=== PATIENT | male | born 1955 | race Caucasian/White ===

== ENCOUNTER 2017-11-17 14:06 | Emergency (ER) | payer MEDICARE, MEDICAID, SELFPAY ==
[2017-11-17 14:13] VITALS: BP 108/72; PULSE 88; RESP 18; TEMP 36.8; O2SAT 98
--- NOTE | 2017-11-17 14:49 | ED.GENADUL ---
Disposition Clinical Impression: Chronic back pain Disposition: HOME Condition: Fair Instructions: Chronic Back Pain (ED) Additional Instructions: Encourage gentle stretching and frequent ambulation. Continue along course as previously advised with spine surgery. You may try topical patches such as Lidoderm patches to help with your pain. Continue with Tylenol. He may take 1000 mg 4 times daily. Do not exceed 4000 mg daily. Keep upcoming appointment with your primary care. Please contact [facility] once again to see about moving up your injection date. Continue along course for weight loss, he may could discuss this further with your primary care as it will help with your back pain and potentially make a surgical candidate. If you develop sensation changes, fever/chills, increased pain or other new/worsening symptoms please seek care urgently once again. Referrals: Ian Soliz MD [Primary Care Provider] - Medical Decision Making - Medical Decision Making Patient presents today with chief complaint of back pain. Pain is chronic. No acute changes. No saddle paresthesias. No change in bowel or bladder habits. Good strength testing equal bilaterally in lower extremities. No fevers or chills. Patient has diffuse tenderness on exam throughout the entirety of the thoracic and lumbar spine with palpation. No step-off is palpated. I did review notes from [facility]. At this point, patient is to follow through with the recommendations of spine at [facility]. I have asked her care according to help facilitate this. She will contact primary care will see if we are able to move up to the scheduled injection with natural resources specialist. workforce management coordinator was able to make an appointment with primary care physician tomorrow. However, the patient is now reporting that he has an appointment tomorrow morning at [facility] to address cyst to that he has had. workforce management coordinator was able to make another appointment. Patient's allergies are limiting for medication as he has had allergy to codeine historically. [facility] spine center clearly does not want the patient to be on opioids for his chronic back pain. I have therefore ordered a Lidoderm patch. Advise close follow-up with primary care. I advised that he contact spine center at [facility] once again to see about moving up his appointment and get on weight loss. We discussed new/worsening symptoms when to seek care urgently once again. Advise follow-up with primary care as scheduled by day care worker. All his questions and concerns were addressed and he is in agreement with this plan. History of Present Illness - General Chief complaint: Nk/Back Pain Stated complaint: CALEX Time Seen by Provider: 11/17/17 14:43 Source: patient, RN notes reviewed Mode of arrival: EMS Limitations: no limitations - History of Present Illness Initial comments: This is 62-year-old male presenting today with chief complaint of back pain that radiates into the right lower extremity. He reports that he has had this pain for over one year. Is been seen by the spine center department. MRIs have been obtained. Patient has known radicular pain radiating into the right lower extremity. He denies any change in bowel or bladder habits. Denies any sensation to changes. Denies any recent trauma. Patient scheduled to have injection in December with spine center. Willie had also recommended that he follow-up with primary care to discuss alternative pain management methods with possible referral to pain management. However, patient reports that I cannot take it anymore. Reports that he has been on multiple medications with no resolution of symptoms. Has been on steroids historically which did not help with symptomatic management. Patient is anticoagulated on Coumadin. He has been taking 500 mg of Tylenol while at home and reports this is unsuccessful in alleviating his discomfort. States that he contacted primary care physician today who recommended evaluation in the emergency department. - Related Data Aspirin [Adult Low Dose Aspirin EC] 81 mg PO DAILY 08/07/12 Warfarin [Coumadin] 0 - 2 tab PO DAILY #90 tab 02/11/17 Cyclobenzaprine [Flexeril] 10 mg PO Q8H PRN PRN #20 tab 04/16/17 Diaper,Brief,Adult, Disposable [Depend] 1 each MC QID #3 box 05/23/17 Lisinopril 10 mg PO DAILY #90 tab-cap 05/23/17 Acetaminophen 1 - 2 tab PO Q6H PRN #90 tab-cap 07/29/17 Tamsulosin HCl 1 - 2 cap PO HS #60 tab-cap 07/29/17 Diphenoxylate HCl/Atropine [Diphenoxylate-Atrop 2.5-0.025] 1 each PO QID PRN #30 tab-cap 08/07/17 Hydrocortisone [ANUSOL-HC 2.5%] 0 RC after bm #30 g 08/07/17 Metoprolol [Lopressor] 12.5 mg PO BID #90 tab-cap 08/19/17 Bumetanide 0.5 tab PO DAILY #45 tab-cap 09/30/17 Meclizine HCl 1 - 2 tab PO Q6H PRN #360 tab 09/30/17 Allergies Allergy/AdvReac Type Severity Reaction Status Date / Time fluoxetine Allergy unkown Unverified 11/17/17 14:14 Sulfa (Sulfonamide Allergy unknown Unverified 11/17/17 14:14 Antibiotics) codeine AdvReac headaches Unverified 11/17/17 14:14 Review of Systems Constitutional: no symptoms reported. denies: chills, fever Respiratory: no symptoms reported Cardiovascular: denies: chest pain, palpitations Gastrointestinal: denies: abdominal pain, nausea, vomiting Genitourinary: denies: urgency (denies change in urinary or bowel habits) Musculoskeletal: as per HPI Skin: denies: rash, lesions, change in color Neurological: as per HPI, abnormal gait (patient ambulates with assitive device at baseline. ). denies: headache Past Medical History - Past Medical History Medical history: AFIB, CVA/TIA, hypertension hernia, obesity, PE, DVT, chronic back pain, Surgical history: herniorraphy, other (hip replacement) - Social History Alcohol use: none Drug use: none General Exam - General Limitations: no limitations General appearance: alert, in no apparent distress - Head Head exam: Present: atraumatic - Eye Eye exam: Present: normal apperance - Neck Neck exam: Present: normal inspection, full ROM. Absent: tenderness - Respiratory Respiratory exam: Present: normal lung sounds bilaterally - Cardiovascular Cardiovascular Exam: Present: regular rate, normal rhythm, normal heart sounds - Rectal Rectal exam: Present: deferred - Extremities Exam Extremities exam: Present: normal inspection (Strength is equal bilaterally in lower extremities. No saddle paresthesias. No sensory deficit noted. Pain is elicited with forward flexion of the bilateral hips, this causes increased pain in his back. No hip pain), pedal edema (patient has compression hose in place) - Back Exam Back exam: Present: tenderness (Patient has exquisite discomfort with palpation over the entirety of the thoracic and lumbar spine.No step of palpable. No notable deformity. Pain extends laterally across entirety of back. No focal area of discomfort. No palpable spasm ), paraspinal tenderness, vertebral tenderness. Absent: normal inspection, muscle spasm, rash noted - Neurological Exam Neurological exam: Present: alert, abnormal gait (Patient ambulating with walker. This is patient's baseline. He denies any change in this.), reflexes normal. Absent: motor sensory deficit - Psychiatric Psychiatric exam: Present: flat affect - Skin Skin exam: Present: warm, dry, intact, normal color Course Vital Signs - 24 hr 11/17/ 14:13 Temperature 36.8 C Pulse 88 Respiratory 18 Rate Blood Pressure 108/72 Pulse Oximetry 98
--- NOTE | 2017-11-17 14:55 | ED.GENADUL_ITS ---
Disposition Clinical Impression: Chronic back pain Disposition: HOME Condition: Fair Instructions: Chronic Back Pain (ED) Additional Instructions: Encourage gentle stretching and frequent ambulation. Continue along course as previously advised with spine surgery. You may try topical patches such as Lidoderm patches to help with your pain. Continue with Tylenol. He may take 1000 mg 4 times daily. Do not exceed 4000 mg daily. Keep upcoming appointment with your primary care. Please contact [facility] once again to see about moving up your injection date. Continue along course for weight loss, he may could discuss this further with your primary care as it will help with your back pain and potentially make a surgical candidate. If you develop sensation changes, fever/chills, increased pain or other new/worsening symptoms please seek care urgently once again. Referrals: Ian Soliz MD [Primary Care Provider] - Medical Decision Making - Medical Decision Making Patient presents today with chief complaint of back pain. Pain is chronic. No acute changes. No saddle paresthesias. No change in bowel or bladder habits. Good strength testing equal bilaterally in lower extremities. No fevers or chills. Patient has diffuse tenderness on exam throughout the entirety of the thoracic and lumbar spine with palpation. No step-off is palpated. I did review notes from [facility]. At this point, patient is to follow through with the recommendations of spine at [facility]. I have asked her care according to help facilitate this. She will contact primary care will see if we are able to move up to the scheduled injection with media center specialist. assessment coordinator was able to make an appointment with primary care physician tomorrow. However, the patient is now reporting that he has an appointment tomorrow morning at [facility] to address cyst to that he has had. assessment coordinator was able to make another appointment. Patient's allergies are limiting for medication as he has had allergy to codeine historically. [facility] spine center clearly does not want the patient to be on opioids for his chronic back pain. I have therefore ordered a Lidoderm patch. Advise close follow-up with primary care. I advised that he contact spine center at [facility] once again to see about moving up his appointment and get on weight loss. We discussed new/worsening symptoms when to seek care urgently once again. Advise follow-up with primary care as scheduled by home care consultant. All his questions and concerns were addressed and he is in agreement with this plan. History of Present Illness - General Chief complaint: Nk/Back Pain Stated complaint: CALEX Time Seen by Provider: 11/17/17 14:43 Source: patient, RN notes reviewed Mode of arrival: EMS Limitations: no limitations - History of Present Illness Initial comments: This is 62-year-old male presenting today with chief complaint of back pain that radiates into the right lower extremity. He reports that he has had this pain for over one year. Is been seen by the spine center department. MRIs have been obtained. Patient has known radicular pain radiating into the right lower extremity. He denies any change in bowel or bladder habits. Denies any sensation to changes. Denies any recent trauma. Patient scheduled to have injection in December with spine center. Willie had also recommended that he follow-up with primary care to discuss alternative pain management methods with possible referral to pain management. However, patient reports that I cannot take it anymore. Reports that he has been on multiple medications with no resolution of symptoms. Has been on steroids historically which did not help with symptomatic management. Patient is anticoagulated on Coumadin. He has been taking 500 mg of Tylenol while at home and reports this is unsuccessful in alleviating his discomfort. States that he contacted primary care physician today who recommended evaluation in the emergency department. - Related Data Aspirin [Adult Low Dose Aspirin EC] 81 mg PO DAILY 08/07/12 Warfarin [Coumadin] 0 - 2 tab PO DAILY #90 tab 02/11/17 Cyclobenzaprine [Flexeril] 10 mg PO Q8H PRN PRN #20 tab 04/16/17 Diaper,Brief,Adult, Disposable [Depend] 1 each MC QID #3 box 05/23/17 Lisinopril 10 mg PO DAILY #90 tab-cap 05/23/17 Acetaminophen 1 - 2 tab PO Q6H PRN #90 tab-cap 07/29/17 Tamsulosin HCl 1 - 2 cap PO HS #60 tab-cap 07/29/17 Diphenoxylate HCl/Atropine [Diphenoxylate-Atrop 2.5-0.025] 1 each PO QID PRN # 30 tab-cap 08/07/17 Hydrocortisone [ANUSOL-HC 2.5%] 0 RC after bm #30 g 08/07/17 Metoprolol [Lopressor] 12.5 mg PO BID #90 tab-cap 08/19/17 Bumetanide 0.5 tab PO DAILY #45 tab-cap 09/30/17 Meclizine HCl 1 - 2 tab PO Q6H PRN #360 tab 09/30/17 Allergies Allergy/AdvReac Type Severity Reaction Status Date / Time fluoxetine Allergy unkown Unverified 11/17/17 14:14 Sulfa (Sulfonamide Allergy unknown Unverified 11/17/17 14:14 Antibiotics) codeine AdvReac headaches Unverified 11/17/17 14:14 Review of Systems Constitutional: no symptoms reported. denies: chills, fever Respiratory: no symptoms reported Cardiovascular: denies: chest pain, palpitations Gastrointestinal: denies: abdominal pain, nausea, vomiting Genitourinary: denies: urgency (denies change in urinary or bowel habits) Musculoskeletal: as per HPI Skin: denies: rash, lesions, change in color Neurological: as per HPI, abnormal gait (patient ambulates with assitive device at baseline. ). denies: headache Past Medical History - Past Medical History Medical history: AFIB, CVA/TIA, hypertension hernia, obesity, PE, DVT, chronic back pain, Surgical history: herniorraphy, other (hip replacement) - Social History Alcohol use: none Drug use: none General Exam - General Limitations: no limitations General appearance: alert, in no apparent distress - Head Head exam: Present: atraumatic - Eye Eye exam: Present: normal apperance - Neck Neck exam: Present: normal inspection, full ROM. Absent: tenderness - Respiratory Respiratory exam: Present: normal lung sounds bilaterally - Cardiovascular Cardiovascular Exam: Present: regular rate, normal rhythm, normal heart sounds - Rectal Rectal exam: Present: deferred - Extremities Exam Extremities exam: Present: normal inspection (Strength is equal bilaterally in lower extremities. No saddle paresthesias. No sensory deficit noted. Pain is elicited with forward flexion of the bilateral hips, this causes increased pain in his back. No hip pain), pedal edema (patient has compression hose in place) - Back Exam Back exam: Present: tenderness (Patient has exquisite discomfort with palpation over the entirety of the thoracic and lumbar spine.No step of palpable. No notable deformity. Pain extends laterally across entirety of back. No focal area of discomfort. No palpable spasm ), paraspinal tenderness, vertebral tenderness. Absent: normal inspection, muscle spasm, rash noted - Neurological Exam Neurological exam: Present: alert, abnormal gait (Patient ambulating with walker. This is patient's baseline. He denies any change in this.), reflexes normal. Absent: motor sensory deficit - Psychiatric Psychiatric exam: Present: flat affect - Skin Skin exam: Present: warm, dry, intact, normal color Course Vital Signs - 24 hr 11/17/ 14:13 Temperature 36.8 C Pulse 88 Respiratory 18 Rate Blood Pressure 108/72 Pulse Oximetry 98
--- NOTE | 2017-11-17 15:12 | PDOC.ERCMPRO ---
Care Management Progress Note 11/17-Lindy RODRIGES requested assistance with a PCP f/u appt. Called CM and spoke with Dennise. Dennise scheduled Jerome for , 11/20 at 2:20. Jerome has an appt at [facility] [place] [place] 11/18/17. Called [facility] to schedule transportation to the provider appt on . Spoke with Maida. Maida scheduled the transport for Jerome.
[2017-11-17 15:20] VITALS: BP 108/72; PULSE 88; RESP 18; TEMP 36.8; O2SAT 98
[2017-11-17] MEDS: Lidocaine 5% Patch 1 PATCH TP (15:27)
== END 2017-11-17 15:25 | disposition home or self-care (01) ==
PROVIDERS: Emergency Provider Student in an Organized Health Care Education/Training Program; PCP Family Medicine
DX: M54.9 Dorsalgia, unspecified (principal); G89.29 Other chronic pain; I10 Essential (primary) hypertension
CPT/HCPCS: 99282; 99283

== ENCOUNTER 2017-12-26 21:33 | Emergency (ER) | payer MEDICARE, MEDICAID, SELFPAY ==
[2017-12-26 21:34] VITALS: BP 130/71; PULSE 82; RESP 20; TEMP 36.9; O2SAT 95
--- NOTE | 2017-12-26 21:49 | W.ED.GENAD ---
Discharge Plan Disposition Patient Disposition: HOME Condition: Stable Discharge Details Chief Complaint: Nk/Back Pain Clinical Impression: Chronic low back pain Reason For Visit: [facility]EX Primary Care Provider: Ian Soliz ED Provider: Benigno Perez Home Meds and New Rx's Prescriptions: Continue warfarin [Coumadin] 5 MG tablet 0 - 2 tab PO DAILY Qty: 90 RF: 4 lisinopril 10 MG tablet 10 mg PO DAILY Qty: 90 RF: 4 diaper,brief,adult,disposable [Depend Underwear For Women S-M] 1 EACH misc 1 ea Miscellaneous QID Qty: 3 RF: 4 tamsulosin 0.4 MG capsule 1 - 2 cap PO HS Qty: 60 RF: 3 hydrocortisone [Anusol-HC] 30 GM cream with perineal applicator RC after bm Qty: 30 RF: 2 diphenoxylate-atropine 1 EACH tablet 1 ea PO QID PRNQty: 30 RF: 0 meclizine 12.5 MG tablet 1 - 2 tab PO Q6H PRN Qty: 360 RF: 3 bumetanide 2 MG tablet 0.5 tab PO DAILY Qty: 45 RF: 4 tramadol 50 MG tablet 50 mg PO Q4H PRN Qty: 30 RF: 0 metoprolol tartrate 25 MG tablet 12.5 mg PO BID Qty: 90 RF: 3 acetaminophen 500 mg capsule 1,000 mg PO Q6H PRN (Reason: pain) Qty: 180 RF: 4 lorazepam 1 mg tablet 1 mg PO ONCE Qty: 1 RF: 0 aspirin [Adult Low Dose Aspirin] 81 MG tablet,delayed release (DR/EC) 81 mg PO DAILY RF: 0 cyclobenzaprine 10 MG tablet 10 mg PO Q8H PRN PRNQty: 20 RF: 0 Discharge Instructions Instructions: Chronic Back Pain (ED) Discharge Data Discharge Physician: Benigno Perez Medical Decision Making 62 yo male who has had over a year of lower back pain and sees the pain clinic and spine clinic and has had MRI's in the past few months showing no central spinal cord abnormalities, who comes in with lower back pain. He states he is waiting for naltrexone that is being mailed to him by the spine clinic but hasn't had it yet took tylenol tonight without relief. He denies difficulty urinating, has no saddle anesthesisa on exam, intact distal sensation and normal reflexes. Denies fevers or ivdu. He was able to walk using a walker at his baseline from the ems stretcher to our stretcher. I suspect the patient is suffering from his continued chronicback pain, there is no findings to suggest sea, cauda equina, or other emergent processes to warrant MRI emergently. No abdominal pain and normal distal pulses so doubt entities such as dissection. will provide muscle relaxers and advised f/u with his pcp and chronic pain clinics Differential Diagnosis sciatica, disc herniation, lumbar strain HPI General Mode of arrival: EMS. Date/Time Provider Initiated Documentation: 12/26/17 21:38. Limitations to Documentation: no limitations. Information obtained by: patient. History of Present Illness 62 year old M presents to the emergency department with the chief complaint of back pain, described as moderate, with intensity rated at 5. and is localized to the back. Patient reports no radiation. Patient started experiencing this year(s) (1) and it has been constant. No relieving factors improve symptom(s), No exacerbating factors reported . Patient notes no other symptoms.. Patient did receive the following treatments prior to arrival, none Related Data Home Medications Medication Instructions Recorded Confirmed aspirin [Adult Low Dose Aspirin] 81 mg PO DAILY 08/07/12 12/26/17 diphenoxylate-atropine 1 ea PO QID PRN #30 tab-cap 08/07/17 12/26/17 hydrocortisone [Anusol-HC] 0 RC after bm #30 g 08/07/17 Previous Rx's Medication Instructions Recorded warfarin [Coumadin] 0 - 2 tab PO DAILY #90 tab 02/11/17 cyclobenzaprine 10 mg PO Q8H PRN PRN #20 tab 04/16/17 diaper,brief,adult,disposable #3 box 05/23/17 [Depend Underwear For Women S-M] lisinopril 10 mg PO DAILY #90 tab-cap 05/23/17 tamsulosin 1 - 2 cap PO HS #60 tab-cap 07/29/17 bumetanide 0.5 tab PO DAILY #45 tab-cap 09/30/17 meclizine 1 - 2 tab PO Q6H PRN #360 tab 09/30/17 tramadol 50 mg PO Q4H PRN #30 tab-cap 11/20/17 metoprolol tartrate 12.5 mg PO BID #90 tab-cap 11/24/17 acetaminophen 500 mg capsule 1,000 mg PO Q6H PRN #180 cap 12/12/17 lorazepam 1 mg tablet 1 mg PO ONCE #1 tab 12/24/17 Allergies Allergy/AdvReac Type Severity Reaction Status Date / Time fluoxetine Allergy unkown Unverified 12/26/17 21:42 Sulfa (Sulfonamide Allergy unknown Unverified 12/26/17 21:42 Antibiotics) codeine AdvReac headaches Unverified 12/26/17 21:42 General Stated Complaint: Nk/Back Pain ADAM: 4 Review of Systems Review of Systems All systems reviewed & are unremarkable except as noted in HPI and below Constitutional Denies chills, Denies fever(s) and Denies weakness Eyes Patient Denies loss of vision ENT Denies change in voice Cardiovascular Denies chest pain and Denies dyspnea Respiratory Denies dyspnea Gastrointestinal Denies abdominal pain, Denies nausea and Denies vomiting Genitourinary Denies dysuria Musculoskeletal Denies joint swelling Integumentary/Breasts Denies rash Neurologic Denies loss of vision and Denies weakness Psychiatric Denies depression Endocrine Denies cold intolerance and Denies heat intolerance Allergic/Immunologic Reports urticaria PFSH Family History family history Personal history of malignant neoplasm Social History Smoking/Tobacco Use Status: Former Tobacco Use Surgical History Repair of umbilical hernia (04/22/01) Exam Const General: no acute distress Orientation: alert HENMT Head: normal to inspection Ears: external ears normal General nose exam: external nose normal Mouth: moist mucous membranes Eyes General: appearance normal, both eyes and all related structures Neck Neck: normal visual inspection Resp Effort & Inspection: normal respiratory effort and able to speak in complete sentences Cardio Rate: regular rate Skin General skin exam: no rashes or lesions noted Neuro General: alert and oriented x3 Extrem General: normal to inspection Psych Mental Status: mental status grossly normal Course Vital Signs Temperature 36.9 C 12/26/17 21:34 Pulse 82 12/26/17 21:34 Respiratory Rate 20 12/26/17 21:34 Blood Pressure 130/71 12/26/17 21:34 Pulse Oximetry 95 09/21/18 21:34 Temperature 36.9 C 12/26/17 21:34 Pulse 82 12/26/17 21:34 Respiratory Rate 20 12/26/17 21:34 Blood Pressure 130/71 12/26/17 21:34 Pulse Oximetry 95 12/26/17 21:34
[2017-12-26] MEDS: Ibuprofen 600 MG TAB PO (21:53)
--- NOTE | 2017-12-26 21:54 | ED.GENADUL_ITS ---
Discharge Plan Disposition Patient Disposition: HOME Condition: Stable Discharge Details Chief Complaint: Nk/Back Pain Clinical Impression: Chronic low back pain Reason For Visit: [facility]EX Primary Care Provider: Ian Soliz ED Provider: Benigno Perez Home Meds and New Rx's Prescriptions: Continue warfarin [Coumadin] 5 MG tablet 0 - 2 tab PO DAILY Qty: 90 RF: 4 lisinopril 10 MG tablet 10 mg PO DAILY Qty: 90 RF: 4 diaper,brief,adult,disposable [Depend Underwear For Women S-M] 1 EACH misc 1 ea Miscellaneous QID Qty: 3 RF: 4 tamsulosin 0.4 MG capsule 1 - 2 cap PO HS Qty: 60 RF: 3 hydrocortisone [Anusol-HC] 30 GM cream with perineal applicator RC after bm Qty: 30 RF: 2 diphenoxylate-atropine 1 EACH tablet 1 ea PO QID PRNQty: 30 RF: 0 meclizine 12.5 MG tablet 1 - 2 tab PO Q6H PRN Qty: 360 RF: 3 bumetanide 2 MG tablet 0.5 tab PO DAILY Qty: 45 RF: 4 tramadol 50 MG tablet 50 mg PO Q4H PRN Qty: 30 RF: 0 metoprolol tartrate 25 MG tablet 12.5 mg PO BID Qty: 90 RF: 3 acetaminophen 500 mg capsule 1,000 mg PO Q6H PRN (Reason: pain) Qty: 180 RF: 4 lorazepam 1 mg tablet 1 mg PO ONCE Qty: 1 RF: 0 aspirin [Adult Low Dose Aspirin] 81 MG tablet,delayed release (DR/EC) 81 mg PO DAILY RF: 0 cyclobenzaprine 10 MG tablet 10 mg PO Q8H PRN PRNQty: 20 RF: 0 Discharge Instructions Instructions: Chronic Back Pain (ED) Discharge Data Discharge Physician: Benigno Perez Medical Decision Making 62 yo male who has had over a year of lower back pain and sees the pain clinic and spine clinic and has had MRI's in the past few months showing no central spinal cord abnormalities, who comes in with lower back pain. He states he is waiting for naltrexone that is being mailed to him by the spine clinic but hasn' t had it yet took tylenol tonight without relief. He denies difficulty urinating , has no saddle anesthesisa on exam, intact distal sensation and normal reflexes. Denies fevers or ivdu. He was able to walk using a walker at his baseline from the ems stretcher to our stretcher. I suspect the patient is suffering from his continued chronicback pain, there is no findings to suggest sea, cauda equina, or other emergent processes to warrant MRI emergently. No abdominal pain and normal distal pulses so doubt entities such as dissection. will provide muscle relaxers and advised f/u with his pcp and chronic pain clinics Differential Diagnosis sciatica, disc herniation, lumbar strain HPI General Mode of arrival: EMS . Date/Time Provider Initiated Documentation: 12/26/17 21:38 . Limitations to Documentation: no limitations . Information obtained by: patient . History of Present Illness 62 year old M presents to the emergency department with the chief complaint of back pain, described as moderate, with intensity rated at 5. and is localized to the back. Patient reports no radiation. Patient started experiencing this year(s) (1) and it has been constant. No relieving factors improve symptom(s), No exacerbating factors reported . Patient notes no other symptoms.. Patient did receive the following treatments prior to arrival, none Related Data Home Medications Medication Instructions Recorded Confirmed aspirin [Adult Low Dose Aspirin] 81 mg PO DAILY 08/07/12 12/26/17 diphenoxylate-atropine 1 ea PO QID PRN #30 tab-cap 08/07/17 12/26/17 hydrocortisone [Anusol-HC] 0 RC after bm #30 g 08/07/17 Previous Rx's Medication Instructions Recorded warfarin [Coumadin] 0 - 2 tab PO DAILY #90 tab 02/11/17 cyclobenzaprine 10 mg PO Q8H PRN PRN #20 tab 04/16/17 diaper,brief,adult,disposable #3 box 05/23/17 [Depend Underwear For Women S-M] lisinopril 10 mg PO DAILY #90 tab-cap 05/23/17 tamsulosin 1 - 2 cap PO HS #60 tab-cap 07/29/17 bumetanide 0.5 tab PO DAILY #45 tab-cap 09/30/17 meclizine 1 - 2 tab PO Q6H PRN #360 tab 09/30/17 tramadol 50 mg PO Q4H PRN #30 tab-cap 11/20/17 metoprolol tartrate 12.5 mg PO BID #90 tab-cap 11/24/17 acetaminophen 500 mg capsule 1,000 mg PO Q6H PRN #180 cap 12/12/17 lorazepam 1 mg tablet 1 mg PO ONCE #1 tab 12/24/17 Allergies Allergy/AdvReac Type Severity Reaction Status Date / Time fluoxetine Allergy unkown Unverified 12/26/17 21:42 Sulfa (Sulfonamide Allergy unknown Unverified 12/26/17 21:42 Antibiotics) codeine AdvReac headaches Unverified 12/26/17 21:42 General Stated Complaint: Nk/Back Pain ADAM: 4 Review of Systems Review of Systems All systems reviewed & are unremarkable except as noted in HPI and below Constitutional Denies chills, Denies fever(s) and Denies weakness Eyes Patient Denies loss of vision ENT Denies change in voice Cardiovascular Denies chest pain and Denies dyspnea Respiratory Denies dyspnea Gastrointestinal Denies abdominal pain, Denies nausea and Denies vomiting Genitourinary Denies dysuria Musculoskeletal Denies joint swelling Integumentary/Breasts Denies rash Neurologic Denies loss of vision and Denies weakness Psychiatric Denies depression Endocrine Denies cold intolerance and Denies heat intolerance Allergic/Immunologic Reports urticaria PFSH Family History family history Personal history of malignant neoplasm Social History Smoking/Tobacco Use Status: Former Tobacco Use Surgical History Repair of umbilical hernia (04/22/01) Exam Const General: no acute distress Orientation: alert HENMT Head: normal to inspection Ears: external ears normal General nose exam: external nose normal Mouth: moist mucous membranes Eyes General: appearance normal, both eyes and all related structures Neck Neck: normal visual inspection Resp Effort & Inspection: normal respiratory effort and able to speak in complete sentences Cardio Rate: regular rate Skin General skin exam: no rashes or lesions noted Neuro General: alert and oriented x3 Extrem General: normal to inspection Psych Mental Status: mental status grossly normal Course Vital Signs Temperature 36.9 C 12/26/17 21:34 Pulse 82 12/26/17 21:34 Respiratory Rate 20 12/26/17 21:34 Blood Pressure 130/71 12/26/17 21:34 Pulse Oximetry 95 09/21/18 21:34 Temperature 36.9 C 12/26/17 21:34 Pulse 82 12/26/17 21:34 Respiratory Rate 20 12/26/17 21:34 Blood Pressure 130/71 12/26/17 21:34 Pulse Oximetry 95 12/26/17 21:34
== END 2017-12-26 22:34 | disposition home or self-care (01) ==
PROVIDERS: Emergency Provider Emergency Medicine; PCP Family Medicine
DX: M54.5 Low back pain (principal); G89.29 Other chronic pain; I10 Essential (primary) hypertension
CPT/HCPCS: 99283

== ENCOUNTER 2018-01-01 20:09 | Emergency (ER) | payer MEDICARE, MEDICAID, SELFPAY ==
[2018-01-01 20:09] VITALS: BP 129/80; PULSE 82; RESP 18; TEMP 36.6; O2SAT 97
--- NOTE | 2018-01-01 20:32 | W.ED.GENAD ---
Discharge Plan Disposition Patient Disposition: HOME Condition: Good Discharge Details Chief Complaint: Urinary Clinical Impression: Hematuria, Painless hematuria Primary Care Provider: Ian Soliz ED Provider: Rai Cunningham Home Meds and New Rx's Prescriptions: No Action naltrexone 50 mg tablet 1.5 mg PO DAILY RF: 0 warfarin [Coumadin] 5 MG tablet 0 - 2 tab PO DAILY Qty: 90 RF: 4 lisinopril 10 MG tablet 10 mg PO DAILY Qty: 90 RF: 4 diaper,brief,adult,disposable [Depend Underwear For Women S-M] 1 EACH misc 1 ea Miscellaneous QID Qty: 3 RF: 4 tamsulosin 0.4 MG capsule 1 - 2 cap PO HS Qty: 60 RF: 3 hydrocortisone [Anusol-HC] 30 GM cream with perineal applicator RC after bm Qty: 30 RF: 2 diphenoxylate-atropine 1 EACH tablet 1 ea PO QID PRNQty: 30 RF: 0 meclizine 12.5 MG tablet 1 - 2 tab PO Q6H PRN Qty: 360 RF: 3 bumetanide 2 MG tablet 0.5 tab PO DAILY Qty: 45 RF: 4 tramadol 50 MG tablet 50 mg PO Q4H PRN Qty: 30 RF: 0 metoprolol tartrate 25 MG tablet 12.5 mg PO BID Qty: 90 RF: 3 acetaminophen 500 mg capsule 1,000 mg PO Q6H PRN (Reason: pain) Qty: 180 RF: 4 lorazepam 1 mg tablet 1 mg PO ONCE Qty: 1 RF: 0 aspirin [Adult Low Dose Aspirin] 81 MG tablet,delayed release (DR/EC) 81 mg PO DAILY RF: 0 cyclobenzaprine 10 MG tablet 10 mg PO Q8H PRN PRNQty: 20 RF: 0 Discharge Instructions Instructions: Hematuria (ED) Additional Instructions: Please continue taking her home medications. Please contact your urologist at [facility] as soon as possible for follow-up. If you have worsening of your blood in your urine, any weakness, or fainting please return immediately. If you would like to see the urologist here, please contact us immediately and we will set that up. If you notice any worsening of your symptoms, or any new symptoms such as vomiting, diarrhea, fever, chills, shortness of breath, chest pain, numbness, weakness, or fainting , please return immediately to the emergency department for reevaluation. Please follow up with your primary care provider as soon as possible for reassessment and reevaluation. As always, it was a pleasure participating in your medical care today. Medical Decision Making This is a 62-year-old male who presents today for hematuria. He does take warfarin for history of a DVT, and paroxysmal A. fib. Patient states that roughly 2 hours prior to arrival he was urinating and had a mild amount of blood noted in his urine. He has never had this before. He had no associated flank pain, dysuria, increased urinary frequency, recent trauma, or other changes. He was experiencing painless hematuria. Here in the emergency department he was able to provide a urine sample however it was yellow with no signs of significant hematuria on visualization. Urinalysis does show evidence of increased RBCs with 20-50 RBCs present. No signs of infection. Patient's hemoglobin is stable, electrolytes are normal, renal function is stable. INR is therapeutic. Patient is hemodynamically stable with no evidence of tachycardia, hypotension, or other concerning symptomatology for volume depletion. I feel that he is having painless hematuria that is very mild in nature. It may be secondary to his Coumadin, prostate issues, or potential bladder polyp or ulcer. I feel ulcer is less likely, with no pain. Controlled with no flank pain, abdominal pain, and no history of kidney stones I feel that a urolithiasis is unlikely and inconsistent with his current clinical picture. I discussed with him the importance of close follow-up, and recommended follow-up with Dr. Keane here at [facility], however the patient made it very clear that he wants to follow-up with his urologist at [facility] that he sees for his prostate issues. He has the physicians number and will call him tomorrow morning. I discussed with him red flags for which to return, including worsening of symptoms. I also discussed our current open options for following up with Dr. Keane if he changes his mind. I have extensively reviewed the treatment plan and discharge instructions with the patient. I have addressed all patient concerns at this time. The patient was made aware of what symptoms to monitor for that would warrant a return to the emergency department. Discussed the plan with the patient, they demonstrate verbal understanding and agreement with our assessment and plan at this time. HPI General Date/Time Provider Initiated Documentation: 01/01/18 20:30. HPI Narrative: This is a 62-year-old male with a past medical history of paroxysmal A. fib, right leg DVT, Coumadin use secondary to this, BPH, obesity, and chronic back pain for which he sees a pain specialist. He presents today for evaluation of hematuria. Patient states that today when he was going to the bathroom roughly 1 hour prior to arrival he noticed a notable amount of dark blood in his urine. There was no pain, no dysuria, no flank pain, no pain in his groin or scrotum. It was painless hematuria. He denies ever having hematuria before. He denies any significant elevation in his INR recently. He denies any history of urolithiasis. He has no other complaints at this time. He denies any vomiting, diarrhea, hematochezia, melena, acholic stool, hematemesis. He denies any trauma to his groin or genitalia. He denies any lightheadedness, syncope, or fainting. He denies any other complaints at this time. He denies any recent surgeries, he denies any IV or illicit drug use. He denies any pertinent family history. Related Data Home Medications Medication Instructions Recorded Confirmed aspirin [Adult Low Dose Aspirin] 81 mg PO DAILY 08/07/12 01/01/18 warfarin [Coumadin] 0 - 2 tab PO DAILY #90 tab 02/11/17 01/01/18 cyclobenzaprine 10 mg PO Q8H PRN PRN #20 tab 04/16/17 01/01/18 diaper,brief,adult,disposable #3 box 05/23/17 01/01/18 [Depend Underwear For Women S-M] lisinopril 10 mg PO DAILY #90 tab-cap 05/23/17 01/01/18 tamsulosin 1 - 2 cap PO HS #60 tab-cap 07/29/17 01/01/18 diphenoxylate-atropine 1 ea PO QID PRN #30 tab-cap 08/07/17 01/01/18 hydrocortisone [Anusol-HC] 0 RC after bm #30 g 08/07/17 01/01/18 bumetanide 0.5 tab PO DAILY #45 tab-cap 09/30/17 01/01/18 meclizine 1 - 2 tab PO Q6H PRN #360 tab 09/30/17 01/01/18 tramadol 50 mg PO Q4H PRN #30 tab-cap 11/20/17 01/01/18 metoprolol tartrate 12.5 mg PO BID #90 tab-cap 11/24/17 01/01/18 acetaminophen 500 mg capsule 1,000 mg PO Q6H PRN #180 cap 12/12/17 01/01/18 lorazepam 1 mg tablet 1 mg PO ONCE #1 tab 12/24/17 01/01/18 naltrexone 50 mg tablet 1.5 mg PO DAILY tab 01/01/18 01/01/18 Previous Rx's Medication Instructions Recorded warfarin [Coumadin] 0 - 2 tab PO DAILY #90 tab 02/11/17 cyclobenzaprine 10 mg PO Q8H PRN PRN #20 tab 04/16/17 diaper,brief,adult,disposable #3 box 05/23/17 [Depend Underwear For Women S-M] lisinopril 10 mg PO DAILY #90 tab-cap 05/23/17 tamsulosin 1 - 2 cap PO HS #60 tab-cap 07/29/17 bumetanide 0.5 tab PO DAILY #45 tab-cap 09/30/17 meclizine 1 - 2 tab PO Q6H PRN #360 tab 09/30/17 tramadol 50 mg PO Q4H PRN #30 tab-cap 11/20/17 metoprolol tartrate 12.5 mg PO BID #90 tab-cap 11/24/17 acetaminophen 500 mg capsule 1,000 mg PO Q6H PRN #180 cap 12/12/17 lorazepam 1 mg tablet 1 mg PO ONCE #1 tab 12/24/17 Allergies Allergy/AdvReac Type Severity Reaction Status Date / Time fluoxetine Allergy unkown Unverified 01/01/18 20:14 Sulfa (Sulfonamide Allergy unknown Unverified 01/01/18 20:14 Antibiotics) codeine AdvReac headaches Unverified 01/01/18 20:14 General Stated Complaint: Urinary ADAM: 4 Review of Systems Review of Systems All systems reviewed & are unremarkable except as noted in HPI and below Exam Narrative Exam Narrative: 1.Const: Well-nourished, Well-developed, appearing stated age 2.Eyes: PERRL, no conjunctival injection, and symmetrical lids. 3.ENT: Atraumatic external nose and ears. Moist MM. Neck: Symmetric, trachea midline, No thyromegaly. 4.CVS: +S1/S2, No murmurs or gallops. Peripheral pulses 2+ and equal in all extremities. Brisk capillary refill in all extremities. 5.RESP: Unlabored respiratory effort. Clear to auscultation bilaterally. No wheezes rales or rhonchi 6.GI: Soft, Nontender/Nondistended, No hepatosplenomegaly. No guarding or rebound. No pelvic tenderness. No suprapubic tenderness. Genital exam demonstrated a uncircumcised male, no hematuria, no blood at the urethral meatus no tenderness. 7.MSK: Normocephalic/Atraumatic, Extremities w/o deformity or ttp No cyanosis or clubbing, Normal movement of all extremities 8.Skin: Warm, Dry. No rashes or lesions. 9.Neuro: black oxide coating equipment tender II-XII grossly intact. Sensation grossly intact, no focal neurologic deficits. 10.Psych: (AAO) x3. Appropriate mood and affect Course Vital Signs Temperature 36.6 C 01/01/18 20:09 Pulse 82 01/01/18 20:09 Respiratory Rate 18 01/01/18 20:09 Blood Pressure 129/80 01/01/18 20:09 Pulse Oximetry 97 01/01/18 20:09 Temperature 36.6 C 01/01/18 20:09 Temperature Source Temporal Artery Scan 01/01/18 20:09 Pulse 82 01/01/18 20:09 Respiratory Rate 18 01/01/18 20:09 Respiratory Effort 01/01/18 20:09 Blood Pressure 129/80 01/01/18 20:09 Pulse Oximetry 97 01/01/18 20:09 Oxygen Delivery Method Room Air 01/01/18 20:09 Oxygen Flow Rate 0 01/01/18 20:09 Pain Level 0 01/01/18 20:12
--- NOTE | 2018-01-01 20:38 | ED.GENADUL_ITS ---
Discharge Plan Disposition Patient Disposition: HOME Condition: Good Discharge Details Chief Complaint: Urinary Clinical Impression: Hematuria, Painless hematuria Primary Care Provider: Ian Soliz ED Provider: Rai Cunningham Home Meds and New Rx's Prescriptions: No Action naltrexone 50 mg tablet 1.5 mg PO DAILY RF: 0 warfarin [Coumadin] 5 MG tablet 0 - 2 tab PO DAILY Qty: 90 RF: 4 lisinopril 10 MG tablet 10 mg PO DAILY Qty: 90 RF: 4 diaper,brief,adult,disposable [Depend Underwear For Women S-M] 1 EACH misc 1 ea Miscellaneous QID Qty: 3 RF: 4 tamsulosin 0.4 MG capsule 1 - 2 cap PO HS Qty: 60 RF: 3 hydrocortisone [Anusol-HC] 30 GM cream with perineal applicator RC after bm Qty: 30 RF: 2 diphenoxylate-atropine 1 EACH tablet 1 ea PO QID PRNQty: 30 RF: 0 meclizine 12.5 MG tablet 1 - 2 tab PO Q6H PRN Qty: 360 RF: 3 bumetanide 2 MG tablet 0.5 tab PO DAILY Qty: 45 RF: 4 tramadol 50 MG tablet 50 mg PO Q4H PRN Qty: 30 RF: 0 metoprolol tartrate 25 MG tablet 12.5 mg PO BID Qty: 90 RF: 3 acetaminophen 500 mg capsule 1,000 mg PO Q6H PRN (Reason: pain) Qty: 180 RF: 4 lorazepam 1 mg tablet 1 mg PO ONCE Qty: 1 RF: 0 aspirin [Adult Low Dose Aspirin] 81 MG tablet,delayed release (DR/EC) 81 mg PO DAILY RF: 0 cyclobenzaprine 10 MG tablet 10 mg PO Q8H PRN PRNQty: 20 RF: 0 Discharge Instructions Instructions: Hematuria (ED) Additional Instructions: Please continue taking her home medications. Please contact your urologist at [facility] as soon as possible for follow-up. If you have worsening of your blood in your urine, any weakness, or fainting please return immediately. If you would like to see the urologist here, please contact us immediately and we will set that up. If you notice any worsening of your symptoms, or any new symptoms such as vomiting, diarrhea, fever, chills, shortness of breath, chest pain, numbness, weakness, or fainting , please return immediately to the emergency department for reevaluation. Please follow up with your primary care provider as soon as possible for reassessment and reevaluation. As always, it was a pleasure participating in your medical care today. Medical Decision Making This is a 62-year-old male who presents today for hematuria. He does take warfarin for history of a DVT, and paroxysmal A. fib. Patient states that roughly 2 hours prior to arrival he was urinating and had a mild amount of blood noted in his urine. He has never had this before. He had no associated flank pain, dysuria, increased urinary frequency, recent trauma, or other changes. He was experiencing painless hematuria. Here in the emergency department he was able to provide a urine sample however it was yellow with no signs of significant hematuria on visualization. Urinalysis does show evidence of increased RBCs with 20-50 RBCs present. No signs of infection. Patient's hemoglobin is stable, electrolytes are normal, renal function is stable. INR is therapeutic. Patient is hemodynamically stable with no evidence of tachycardia, hypotension, or other concerning symptomatology for volume depletion. I feel that he is having painless hematuria that is very mild in nature. It may be secondary to his Coumadin, prostate issues, or potential bladder polyp or ulcer. I feel ulcer is less likely, with no pain. Controlled with no flank pain, abdominal pain, and no history of kidney stones I feel that a urolithiasis is unlikely and inconsistent with his current clinical picture. I discussed with him the importance of close follow-up, and recommended follow- up with Dr. Keane here at [facility], however the patient made it very clear that he wants to follow-up with his urologist at [facility] that he sees for his prostate issues. He has the physicians number and will call him tomorrow morning. I discussed with him red flags for which to return, including worsening of symptoms. I also discussed our current open options for following up with Dr. Keane if he changes his mind. I have extensively reviewed the treatment plan and discharge instructions with the patient. I have addressed all patient concerns at this time. The patient was made aware of what symptoms to monitor for that would warrant a return to the emergency department. Discussed the plan with the patient, they demonstrate verbal understanding and agreement with our assessment and plan at this time. HPI General Date/Time Provider Initiated Documentation: 01/01/18 20:30 . HPI Narrative: This is a 62-year-old male with a past medical history of paroxysmal A. fib, right leg DVT, Coumadin use secondary to this, BPH, obesity, and chronic back pain for which he sees a pain specialist. He presents today for evaluation of hematuria. Patient states that today when he was going to the bathroom roughly 1 hour prior to arrival he noticed a notable amount of dark blood in his urine. There was no pain, no dysuria, no flank pain , no pain in his groin or scrotum. It was painless hematuria. He denies ever having hematuria before. He denies any significant elevation in his INR recently. He denies any history of urolithiasis. He has no other complaints at this time. He denies any vomiting, diarrhea, hematochezia, melena, acholic stool, hematemesis. He denies any trauma to his groin or genitalia. He denies any lightheadedness, syncope, or fainting. He denies any other complaints at this time. He denies any recent surgeries, he denies any IV or illicit drug use. He denies any pertinent family history. Related Data Home Medications Medication Instructions Recorded Confirmed aspirin [Adult Low Dose Aspirin] 81 mg PO DAILY 08/07/12 01/01/18 warfarin [Coumadin] 0 - 2 tab PO DAILY #90 tab 02/11/17 01/01/18 cyclobenzaprine 10 mg PO Q8H PRN PRN #20 tab 04/16/17 01/01/18 diaper,brief,adult,disposable #3 box 05/23/17 01/01/18 [Depend Underwear For Women S-M] lisinopril 10 mg PO DAILY #90 tab-cap 05/23/17 01/01/18 tamsulosin 1 - 2 cap PO HS #60 tab-cap 07/29/17 01/01/18 diphenoxylate-atropine 1 ea PO QID PRN #30 tab-cap 08/07/17 01/01/18 hydrocortisone [Anusol-HC] 0 RC after bm #30 g 08/07/17 01/01/18 bumetanide 0.5 tab PO DAILY #45 tab-cap 09/30/17 01/01/18 meclizine 1 - 2 tab PO Q6H PRN #360 tab 09/30/17 01/01/18 tramadol 50 mg PO Q4H PRN #30 tab-cap 11/20/17 01/01/18 metoprolol tartrate 12.5 mg PO BID #90 tab-cap 11/24/17 01/01/18 acetaminophen 500 mg capsule 1,000 mg PO Q6H PRN #180 cap 12/12/17 01/01/18 lorazepam 1 mg tablet 1 mg PO ONCE #1 tab 12/24/17 01/01/18 naltrexone 50 mg tablet 1.5 mg PO DAILY tab 01/01/18 01/01/18 Previous Rx's Medication Instructions Recorded warfarin [Coumadin] 0 - 2 tab PO DAILY #90 tab 02/11/17 cyclobenzaprine 10 mg PO Q8H PRN PRN #20 tab 04/16/17 diaper,brief,adult,disposable #3 box 05/23/17 [Depend Underwear For Women S-M] lisinopril 10 mg PO DAILY #90 tab-cap 05/23/17 tamsulosin 1 - 2 cap PO HS #60 tab-cap 07/29/17 bumetanide 0.5 tab PO DAILY #45 tab-cap 09/30/17 meclizine 1 - 2 tab PO Q6H PRN #360 tab 09/30/17 tramadol 50 mg PO Q4H PRN #30 tab-cap 11/20/17 metoprolol tartrate 12.5 mg PO BID #90 tab-cap 11/24/17 acetaminophen 500 mg capsule 1,000 mg PO Q6H PRN #180 cap 12/12/17 lorazepam 1 mg tablet 1 mg PO ONCE #1 tab 12/24/17 Allergies Allergy/AdvReac Type Severity Reaction Status Date / Time fluoxetine Allergy unkown Unverified 01/01/18 20:14 Sulfa (Sulfonamide Allergy unknown Unverified 01/01/18 20:14 Antibiotics) codeine AdvReac headaches Unverified 01/01/18 20:14 General Stated Complaint: Urinary ADAM: 4 Review of Systems Review of Systems All systems reviewed & are unremarkable except as noted in HPI and below Exam Narrative Exam Narrative: 1.Const: Well-nourished, Well-developed, appearing stated age 2.Eyes: PERRL, no conjunctival injection, and symmetrical lids. 3.ENT: Atraumatic external nose and ears. Moist MM. Neck: Symmetric, trachea midline, No thyromegaly. 4.CVS: +S1/S2, No murmurs or gallops. Peripheral pulses 2+ and equal in all extremities. Brisk capillary refill in all extremities. 5.RESP: Unlabored respiratory effort. Clear to auscultation bilaterally. No wheezes rales or rhonchi 6.GI: Soft, Nontender/Nondistended, No hepatosplenomegaly. No guarding or rebound. No pelvic tenderness. No suprapubic tenderness. Genital exam demonstrated a uncircumcised male, no hematuria, no blood at the urethral meatus no tenderness. 7.MSK: Normocephalic/Atraumatic, Extremities w/o deformity or ttp No cyanosis or clubbing, Normal movement of all extremities 8.Skin: Warm, Dry. No rashes or lesions. 9.Neuro: central lab technician II-XII grossly intact. Sensation grossly intact, no focal neurologic deficits. 10.Psych: (AAO) x3. Appropriate mood and affect Course Vital Signs Temperature 36.6 C 01/01/18 20:09 Pulse 82 01/01/18 20:09 Respiratory Rate 18 01/01/18 20:09 Blood Pressure 129/80 01/01/18 20:09 Pulse Oximetry 97 01/01/18 20:09 Temperature 36.6 C 01/01/18 20:09 Temperature Source Temporal Artery Scan 01/01/18 20:09 Pulse 82 01/01/18 20:09 Respiratory Rate 18 01/01/18 20:09 Respiratory Effort 01/01/18 20:09 Blood Pressure 129/80 01/01/18 20:09 Pulse Oximetry 97 01/01/18 20:09 Oxygen Delivery Method Room Air 01/01/18 20:09 Oxygen Flow Rate 0 01/01/18 20:09 Pain Level 0 01/01/18 20:12
[2018-01-01 21:01] LABS: Abs Immature Grans 0.04 k/cumm (0.0-0.09); Absolute Basophil Count 0.04 k/cumm (0.0-0.2); Absolute Eosinophil Count 0.49 k/cumm (0.0-0.7); Absolute Lymphocyte Count 1.93 k/cumm (1.2-3.4); Absolute Monocyte Count 1.06 k/cumm (0.11-0.7); Absolute Neutrophil Count 7.01 k/cumm (1.2-6.7); Basophils % 0.4; Eosinophils % 4.6; HCT 46.7 % (40.0-50.0); HGB 14.9 g/dL (13.5-17.5); Immature Grans % 0.4; Lymphocytes % 18.3; Mean Corp. HGB Concentration 31.9 g/dL (32.0-36.0); Mean Corpuscular Hemoglobin 29.5 pg (27.0-33.0); Mean Corpuscular Volume 92.5 fL (80-95); Neutrophils % 66.3; Platelet Count 222 x1000/uL (130-400); RBC 5.05 m/cumm (4.50-6.00); RBC Distribution Width 15.2 % (11.8-14.1); White Blood Cell Count 10.57 k/cumm (4.4-10.8)
[2018-01-01 21:07] LABS: Bilirubin Negative (Negative); Blood Moderate (Negative); Clarity Clear; Glucose Negative (Negative); Ketones Negative (Negative); Leukocyte Esterase Negative (Negative); Nitrite Negative (Negative); Specific Gravity 1.015 (1.005-1.025); Urobilinogen 0.2 EU/dL (Up TO 0.2)
[2018-01-01 21:14] LABS: ALT 26 U/L (12-78); AST 17 U/L (15-37); Albumin 3.5 g/dL (3.4-5.0); Alkaline Phosphatase 71 U/L (46-116); BUN 20 mg/dL (7-18); Bilirubin, Total 0.4 mg/dL (0.2-1.0); CREATININE 0.91 mg/dL (0.70-1.30); Calcium 8.9 mg/dL (8.5-10.1); Chloride 99 mmol/L (98-107); Glucose 106 mg/dL (70-100); Sodium 134 mmol/L (136-145); Total Protein 7.5 g/dL (6.4-8.2)
[2018-01-01 22:06] LABS: Bacteria Rare HPF (Negative); C & S Indicated? No; Casts Negative LPF (Negative); Crystals Negative HPF (Negative); Epithelial Cells Negative HPF (Negative); Mucus Negative (Negative); RBC 20-50 (0-2); WBC 0-2 HPF (0-5)
[2018-01-01 22:12] LABS: INR 2.3 (1.0-3.5); PTT Activated 34.2 sec (21.0-31.4); Prothrombin Time 21.4 sec (9.3-10.8)
--- NOTE | 2018-01-02 09:39 | PDOC.ERCMPRO ---
Care Management Progress Note 01/02/18- Pt seen for urinary hematuria by Dr. Shantell Cunningham on 01/01/18. F/U referral sent to [facility] (Location per pt's request).
--- NOTE | 2018-01-02 09:43 | CMPROGNOTE_ITS ---
Care Management Progress Note 01/02/18- Pt seen for urinary hematuria by Dr. Shantell Cunningham on 01/01/18. F/U referral sent to [facility] (Location per pt's request).
== END 2018-01-01 22:45 | disposition home or self-care (01) ==
PROVIDERS: Emergency Provider Student in an Organized Health Care Education/Training Program; PCP Family Medicine
DX: R31.9 Hematuria, unspecified (principal); Z79.01 Long term (current) use of anticoagulants; I48.91 Unspecified atrial fibrillation; I10 Essential (primary) hypertension
CPT/HCPCS: 36415; 80053; 99283; 81003; 81015; 85025; 85610; 85730

== ENCOUNTER 2018-01-11 12:18 | Emergency (ER) | payer MEDICARE, MEDICAID, SELFPAY ==
[2018-01-11 12:30] VITALS: BP 111/52; PULSE 78; RESP 16; TEMP 36.7; O2SAT 96
[2018-01-11 12:48] LABS: Bilirubin Negative (Negative); Blood Large (Negative); Clarity Cloudy; Glucose Negative (Negative); Ketones Negative (Negative); Leukocyte Esterase Small (Negative); Nitrite Positive (Negative); Urobilinogen 0.2 EU/dL (Up TO 0.2)
--- NOTE | 2018-01-11 12:55 | ED.GENADUL_ITS ---
Discharge Plan Disposition Patient Disposition: HOME Condition: Stable Discharge Details Chief Complaint: Urinary Clinical Impression: UTI (urinary tract infection) Reason For Visit: ZENA Primary Care Provider: Ian Soliz ED Provider: Jessica Morin Home Meds and New Rx's Prescriptions: New cephalexin [Keflex] 500 mg capsule 500 mg PO BID 5 Days Qty: 10 RF: 0 Continue naltrexone 50 mg tablet 1.5 mg PO DAILY RF: 0 warfarin [Coumadin] 5 MG tablet 0 - 2 tab PO DAILY Qty: 90 RF: 4 lisinopril 10 MG tablet 10 mg PO DAILY Qty: 90 RF: 4 diaper,brief,adult,disposable [Depend Underwear For Women S-M] 1 EACH misc 1 ea Miscellaneous QID Qty: 3 RF: 4 tamsulosin 0.4 MG capsule 1 - 2 cap PO HS Qty: 60 RF: 3 hydrocortisone [Anusol-HC] 30 GM cream with perineal applicator RC after bm Qty: 30 RF: 2 diphenoxylate-atropine 1 EACH tablet 1 ea PO QID PRNQty: 30 RF: 0 meclizine 12.5 MG tablet 1 - 2 tab PO Q6H PRN Qty: 360 RF: 3 bumetanide 2 MG tablet 0.5 tab PO DAILY Qty: 45 RF: 4 tramadol 50 MG tablet 50 mg PO Q4H PRN Qty: 30 RF: 0 metoprolol tartrate 25 MG tablet 12.5 mg PO BID Qty: 90 RF: 3 acetaminophen 500 mg capsule 1,000 mg PO Q6H PRN (Reason: pain) Qty: 180 RF: 4 lorazepam 1 mg tablet 1 mg PO ONCE Qty: 1 RF: 0 aspirin [Adult Low Dose Aspirin] 81 MG tablet,delayed release (DR/EC) 81 mg PO DAILY RF: 0 cyclobenzaprine 10 MG tablet 10 mg PO Q8H PRN PRNQty: 20 RF: 0 Discharge Instructions Instructions: Urinary Tract Infection in Men (ED) Additional Instructions: Take your antibiotics until finished. Call your urologist at [facility] tomorrow to schedule follow-up appointment for reevaluation. If you are unable to get an appointment with urologist, call care management here to help with assistance and appointment with your urologist Dr. Keane. Return immediately to the emergency department any worsening or new concerning symptoms Referrals: Obi Keane MD [ [facility] STAFF PHYSICIAN] - Discharge Data Discharge Physician: Jessica Morin Medical Decision Making 62-year-old male with a history of atrial fibrillation on Coumadin, BPH, PE, chronic back pain on tramadol who presents for dysuria and nausea with urgency since yesterday. He has a history of chronic urinary frequency. He has a history of chronic midline back pain and states his pain is no different than his usual back pain. He does admit to some additional left-sided flank pain for the past 3 days but none at present. Patient was seen here on 01/01 for hematuria and had a urinalysis which showed 20 -50 RBCs but 0-2 WBCs and was discharged home with painless hematuria. He was offered to follow-up with urology here but had preferred to follow-up with [facility] urology. Patient states he has not seen urology yet since last week' s ED visit. Vitals within normal limits. Afebrile. Patient appears nontoxic. Lungs clear to auscultation. Abdomen soft, obese, but nontender. Normal exam. No focal deficits. Uses a walker for ambulation due to chronic hip pain. Differential diagnosis includes UTI, pyelonephritis, kidney stone, interstitial cystitis. Patient states he is not sexually active so doubt STD. Will place an IV, bolus IV fluids, labs, urinalysis and obtain a CT rule out renal stone. 1300 --labs reviewed and no white blood cell count of 14, normal hemoglobin, normal creatinine. Urinalysis notes positive nitrate, greater than 50 WBCs, greater than 50 RBCs, small leukocyte esterase. 1330 --patient unable to lay flat in CT due to his chronic back pain and was sent back. Patient states he usually has trouble with this and [facility] has had to give him pain medication in the past. Patient offered pain medication and to send back to CT but he is declining to go back. His urinalysis is positive for UTI. Discussed with patient that as he has obvious UTI, we have a source for his symptoms and he may not need a CT but a CT would rule out a possible stone versus pyelonephritis, but he is again declining CT at this time. Patient states he has not eaten anything, will give his Zofran, oxycodone, dose of Keflex and food and reassess. 1500 --patient states his pain is improved and he is requesting to go home. Patient is unable to obtain a ride to the pharmacy. Will give dose of Keflex for home tonight. Prescription for Keflex was called into [facility] pharmacy for home delivery. Patient was instructed to call urology this week to schedule a follow-up appointment for reevaluation. He is instructed to return to the ER with any worsening or new concerning symptoms. HPI General Mode of arrival: ambulatory . Date/Time Provider Initiated Documentation: 01/11/18 12:23 . Limitations to Documentation: no limitations . Information obtained by: patient . HPI Narrative: Patient is a 62-year-old male with a history of paroxysmal A. fib on Coumadin, BPH, chronic back pain on tramadol who presents to the ED with a complaint of dysuria and nausea since yesterday. Patient was seen here last week in the ED and discharged with painless hematuria and instructed to follow- up with urology. Patient states his hematuria is now resolved. Patient states he has chronic urinary frequency. He does admit to some urinary urgency. He states he has chronic lower back pain in the midline, but does admit to some left flank pain over the past 3 days. He denies fever, vomiting, recent antibiotics, recent hospital admission or history of kidney stones. Past medical history: Paroxysmal atrial fibrillation, obstructive sleep apnea, osteoarthritis, hypertension, hyperlipidemia, BPH, pulmonary embolism, chronic back pain Surgical history: Hernia surgery, hip replacement Social history: Former tobacco use in his 20s, denies alcohol or drugs Medications: See list -Coumadin Allergies: Sulfa, Prozac, Codeine Related Data Home Medications Medication Instructions Recorded Confirmed aspirin [Adult Low Dose Aspirin] 81 mg PO DAILY 08/07/12 01/11/18 warfarin [Coumadin] 0 - 2 tab PO DAILY #90 tab 02/11/17 01/11/18 cyclobenzaprine 10 mg PO Q8H PRN PRN #20 tab 04/16/17 01/11/18 diaper,brief,adult,disposable #3 box 05/23/17 01/01/18 [Depend Underwear For Women S-M] lisinopril 10 mg PO DAILY #90 tab-cap 05/23/17 01/11/18 tamsulosin 1 - 2 cap PO HS #60 tab-cap 07/29/17 01/11/18 diphenoxylate-atropine 1 ea PO QID PRN #30 tab-cap 08/07/17 01/11/18 hydrocortisone [Anusol-HC] 0 RC after bm #30 g 08/07/17 01/01/18 bumetanide 0.5 tab PO DAILY #45 tab-cap 09/30/17 01/11/18 meclizine 1 - 2 tab PO Q6H PRN #360 tab 09/30/17 01/11/18 tramadol 50 mg PO Q4H PRN #30 tab-cap 11/20/17 01/11/18 metoprolol tartrate 12.5 mg PO BID #90 tab-cap 11/24/17 01/11/18 acetaminophen 500 mg capsule 1,000 mg PO Q6H PRN #180 cap 12/12/17 01/11/18 lorazepam 1 mg tablet 1 mg PO ONCE #1 tab 12/24/17 01/11/18 naltrexone 50 mg tablet 1.5 mg PO DAILY tab 01/01/18 01/11/18 cephalexin [Keflex] 500 mg PO BID 5 Days #10 cap 01/11/18 Previous Rx's Medication Instructions Recorded warfarin [Coumadin] 0 - 2 tab PO DAILY #90 tab 02/11/17 cyclobenzaprine 10 mg PO Q8H PRN PRN #20 tab 04/16/17 diaper,brief,adult,disposable #3 box 05/23/17 [Depend Underwear For Women S-M] lisinopril 10 mg PO DAILY #90 tab-cap 05/23/17 tamsulosin 1 - 2 cap PO HS #60 tab-cap 07/29/17 bumetanide 0.5 tab PO DAILY #45 tab-cap 09/30/17 meclizine 1 - 2 tab PO Q6H PRN #360 tab 09/30/17 tramadol 50 mg PO Q4H PRN #30 tab-cap 11/20/17 metoprolol tartrate 12.5 mg PO BID #90 tab-cap 11/24/17 acetaminophen 500 mg capsule 1,000 mg PO Q6H PRN #180 cap 12/12/17 lorazepam 1 mg tablet 1 mg PO ONCE #1 tab 12/24/17 cephalexin [Keflex] 500 mg PO BID 5 Days #10 cap 01/11/18 Allergies Allergy/AdvReac Type Severity Reaction Status Date / Time fluoxetine Allergy unkown Unverified 01/11/18 12:34 Sulfa (Sulfonamide Allergy unknown Unverified 01/11/18 12:34 Antibiotics) codeine AdvReac headaches Unverified 01/11/18 12:34 General Stated Complaint: Urinary ADAM: 3 Review of Systems Review of Systems All systems reviewed & are unremarkable except as noted in HPI and below Constitutional Denies chills, Denies excessive sweating, Denies fatigue, Denies fever(s), Denies weakness and Denies weight loss Eyes Reports system reviewed and no additional complaints, except as docu and Denies blurry vision ENT Denies vertigo, Denies dizziness, Denies otalgia, Denies nasal congestion, Denies sore throat and Denies throat swelling Cardiovascular Denies chest pain, Denies syncope, Denies rapid heart rate and Denies dyspnea Respiratory Denies dyspnea Gastrointestinal Denies abdominal pain, Denies diarrhea and Denies vomiting Genitourinary Denies hematuria, Reports dysuria, Reports flank pain, Denies penile discharge, Denies scrotal swelling, Denies testicular mass, Denies testicular pain, Reports urinary frequency (chronic) and Reports urinary urgency Musculoskeletal Reports back pain and Denies joint swelling Integumentary/Breasts Denies lesions and Denies rash Neurologic Denies behavioral changes, Denies confusion, Denies vertigo, Denies dizziness, Denies syncope and Denies weakness Psychiatric Denies behavioral changes, Denies confusion and Denies depression Endocrine Denies excessive sweating and Denies fatigue Hematologic/Lymphatic Denies easy bruising and Denies lymphadenopathy Allergic/Immunologic Denies throat swelling PFSH Family History family history Personal history of malignant neoplasm Social History Smoking/Tobacco Use Status: Never alcohol intake: never Surgical History Repair of umbilical hernia (04/22/01) Exam Const General: cooperative and healthy appearing Orientation: alert and awake [facility] Head: normal to inspection Ears: hearing grossly normal bilaterally and external ears normal General nose exam: external nose normal Face and sinus: normal facial exam Eyes General: appearance normal, both eyes and all related structures Eyelids: eyelids normal EOM: EOM intact bilaterally Neck Neck: normal visual inspection Lymphatic: no lymphadenopathy noted Chest Chest: normal inspection of the chest Resp Effort & Inspection: normal respiratory effort and able to speak in complete sentences Auscultation: clear to auscultation bilaterally Cardio Rate: regular rate Rhythm: regular rhythm GI Inspection: normal to inspection and other (Obese abdomen) Palpation: soft, not firm, no guarding, no hepatosplenomegaly, no masses and nontender Auscultation: normal bowel sounds Male General Exam: Yes normal external exam Penis: normal penis Scrotum: scrotum normal Testes: normal Back/Spine/Pelvis Back: no CVA tenderness Skin General skin exam: no rashes or lesions noted Neuro General: alert and awake Cognition: normal cognition Speech: speech normal Gait: antalgic (uses walker) Motor: muscle tone normal throughout Extrem General: full ROM, normal capillary refill, no calf tenderness and edema ( nonpitting b/l lower extremities w/ chronic skin changes) Psych Appearance: grossly normal Mental Status: mental status grossly normal Speech and Movement: speech and movement normal Affect: normal affect Thought Process: normal Course Vital Signs Temperature 98.1 F 01/11/18 12:30 Pulse 78 01/11/18 12:30 Respiratory Rate 16 01/11/18 12:30 Blood Pressure 111/52 L 01/11/18 12:30 Pulse Oximetry 96 01/11/18 12:30 Temperature 98.1 F 01/11/18 12:30 Temperature Source Skin 01/11/18 12:30 Pulse 78 01/11/18 12:30 Respiratory Rate 16 01/11/18 12:30 Respiratory Effort Non-Labored 01/11/18 12:30 Blood Pressure 111/52 L 01/11/18 12:30 Blood Pressure Position Sitting 01/11/18 12:30 Pulse Oximetry 96 01/11/18 12:30 Oxygen Delivery Method Room Air 01/11/18 12:30 Oxygen Flow Rate 0 01/11/18 12:30 Pain Level 10 01/11/18 12:30 Comment 01/11/18 12:30 Lab/Test Results Lab/Test Results: Laboratory Tests Range/Units 01/11/18 12:40 Urine Color (Yellow) Yellow Urine Clarity Cloudy Urine pH (5-8) 6.0 Ur Specific [place] (1.005-1.025) 1.020 Urine Protein (Negative) mg/dL 30 H Urine Ketones (Negative) mg/dL Negative Urine Blood (Negative) Large H Urine Nitrite (Negative) Positive H Urine Bilirubin (Negative) Negative Urine Urobilinogen (Up TO 0.2) EU/dL 0.2 Ur Leukocyte Esterase (Negative) Small H Urine Glucose (Negative) mg/dL Negative
[2018-01-11 12:56] LABS: Bacteria Moderate HPF (Negative); C & S Indicated? Yes; Casts Negative LPF (Negative); Crystals Negative HPF (Negative); Epithelial Cells Negative HPF (Negative); Mucus Negative (Negative); RBC >50 (0-2); WBC >50 HPF (0-5)
[2018-01-11] MEDS: Normal Saline 500 ML IV (13:05)
[2018-01-11 13:06] LABS: Abs Immature Grans 0.06 k/cumm (0.0-0.09); Absolute Basophil Count 0.04 k/cumm (0.0-0.2); Absolute Eosinophil Count 0.35 k/cumm (0.0-0.7); Absolute Lymphocyte Count 1.32 k/cumm (1.2-3.4); Absolute Monocyte Count 1.13 k/cumm (0.11-0.7); Absolute Neutrophil Count 11.27 k/cumm (1.2-6.7); Basophils % 0.3; Eosinophils % 2.5; HCT 44.7 % (40.0-50.0); HGB 14.5 g/dL (13.5-17.5); Immature Grans % 0.4; Lymphocytes % 9.3; Mean Corp. HGB Concentration 32.4 g/dL (32.0-36.0); Mean Corpuscular Hemoglobin 29.8 pg (27.0-33.0); Mean Platelet Volume 9.8 fL (8.0-11.0); Neutrophils % 79.5; Platelet Count 215 x1000/uL (130-400); RBC 4.86 m/cumm (4.50-6.00); RBC Distribution Width 15.3 % (11.8-14.1); White Blood Cell Count 14.18 k/cumm (4.4-10.8)
[2018-01-11 13:15] LABS: INR 2.9 (1.0-3.5); Prothrombin Time 27.5 sec (9.3-10.8)
[2018-01-11 13:17] LABS: ALT 22 U/L (12-78); AST 16 U/L (15-37); Albumin 3.3 g/dL (3.4-5.0); Alkaline Phosphatase 73 U/L (46-116); Anion Gap 7.7 mmol/L (3-11); BUN 21 mg/dL (7-18); Bilirubin, Total 0.7 mg/dL (0.2-1.0); CO2 27.3 mmol/L (21.0-32.0); CREATININE 0.78 mg/dL (0.70-1.30); Calcium 8.6 mg/dL (8.5-10.1); Chloride 100 mmol/L (98-107); Glucose 115 mg/dL (70-100); Potassium 4.2 mmol/L (3.5-5.1); Sodium 135 mmol/L (136-145); Total Protein 7.2 g/dL (6.4-8.2)
[2018-01-11] MEDS: Ondansetron 4 MG/2 ML VIAL IVP (13:43)
[2018-01-11] MEDS: oxyCODONE 5 MG TAB PO (14:00)
[2018-01-11] MEDS: Cephalexin 500 MG CAP PO ×2 (14:00→15:00)
--- NOTE | 2018-01-11 15:05 | NUR.NOTE ---
Nursing Note: Called the Keflex prescription in to [facility]. To be delivered tomorrow Friday. Belia Leon.
[2018-01-11 15:20] VITALS: BP 108/60; PULSE 74; RESP 16; TEMP 36.7; O2SAT 97
== END 2018-01-11 15:13 | disposition home or self-care (01) ==
PROVIDERS: Emergency Provider Physician Assistant; PCP Family Medicine
DX: N39.0 Urinary tract infection, site not specified (principal); B96.4 Proteus (mirabilis) (morganii) as the cause of diseases classified elsewhere; I10 Essential (primary) hypertension
CPT/HCPCS: 36415; 80053; 87077; 96361; 96374; 99284; 81003; 81015; 85025; 85610; 87086; 87186; J2405

== ENCOUNTER 2018-02-19 13:51 | Emergency (ER) | payer MEDICARE, MEDICAID, SELFPAY ==
[2018-02-19 13:53] VITALS: BP 139/71; PULSE 78; RESP 18; TEMP 36.8; O2SAT 99
--- NOTE | 2018-02-19 14:03 | W.ED.GENAD ---
Discharge Plan Disposition Patient Disposition: HOME Condition: Stable Discharge Details Chief Complaint: Urinary Clinical Impression: Hematuria, microscopic Reason For Visit: ZENA Primary Care Provider: Ian Soliz ED Provider: Benigno Perez Home Meds and New Rx's Prescriptions: Continue naltrexone 50 mg tablet 1.5 mg PO DAILY RF: 0 warfarin [Coumadin] 5 MG tablet 0 - 2 tab PO DAILY Qty: 90 RF: 4 lisinopril 10 MG tablet 10 mg PO DAILY Qty: 90 RF: 4 diaper,brief,adult,disposable [Depend Underwear For Women S-M] 1 EACH misc 1 ea Miscellaneous QID Qty: 3 RF: 4 tamsulosin 0.4 MG capsule 1 - 2 cap PO HS Qty: 60 RF: 3 meclizine 12.5 MG tablet 1 - 2 tab PO Q6H PRN Qty: 360 RF: 3 bumetanide 2 MG tablet 0.5 tab PO DAILY Qty: 45 RF: 4 metoprolol tartrate 25 MG tablet 12.5 mg PO BID Qty: 90 RF: 3 acetaminophen 500 mg capsule 1,000 mg PO Q6H PRN (Reason: pain) Qty: 180 RF: 4 oxycodone 5 mg tablet 5 mg PO Q6H MDD 20 mg PRN (Reason: pain) Qty: 30 RF: 0 aspirin [Adult Low Dose Aspirin] 81 MG tablet,delayed release (DR/EC) 81 mg PO DAILY RF: 0 Discharge Instructions Instructions: Hematuria (ED) Additional Instructions: follow up with your urologist if you have fevers or persistent vomit return to the emergency department Medical Decision Making 62 yo male with hx of hematuria for which he is being seen at [facility] [place] [facility] for this. He states he had return of bloody urine today and so called ems to bring him here. He denies fevers, is cold but states he realized when he woke up his heating is broken and hasn't had it fixed yet so called ems when he felt very cold. He has chronic lower back pain that he states is unchanged, no saddle anesthesia on exam and denies urinary retention. No cva tenderness or dysuria to suggest pyelo. Will check UA. Has seen [facility] [place] and they were planning on doing cystoscopy but was postponed due to his back pain and is f/u with them later urine here shows microscopic hematuria without evidence of infection and on visual inspection of urine it is clear with mild yellow tinge, not macroscopic hematuria. No need for bladder irrigation. Strongly advised he needs to f/u with [facility] [place] [facility] for workup as this could be cancer. He states his heat is now working. Will d/c home Differential Diagnosis hematuria, cancer, uti HPI General Mode of arrival: EMS. Date/Time Provider Initiated Documentation: 02/19/18 13:58. Limitations to Documentation: no limitations. Information obtained by: patient. History of Present Illness 62 year old M presents to the emergency department with the chief complaint of blood in urine, described as moderate, Patient started experiencing this day(s) (1) and it has been constant. No relieving factors improve symptom(s), No exacerbating factors reported . Patient notes no other symptoms.. Patient did receive the following treatments prior to arrival, none Related Data Home Medications Medication Instructions Recorded Confirmed aspirin [Adult Low Dose Aspirin] 81 mg PO DAILY 08/07/12 02/03/18 warfarin [Coumadin] 0 - 2 tab PO DAILY #90 tab 02/11/17 02/03/18 diaper,brief,adult,disposable #3 box 05/23/17 02/03/18 [Depend Underwear For Women S-M] lisinopril 10 mg PO DAILY #90 tab-cap 05/23/17 02/03/18 tamsulosin 1 - 2 cap PO HS #60 tab-cap 07/29/17 02/03/18 bumetanide 0.5 tab PO DAILY #45 tab-cap 09/30/17 02/03/18 meclizine 1 - 2 tab PO Q6H PRN #360 tab 09/30/17 02/03/18 metoprolol tartrate 12.5 mg PO BID #90 tab-cap 11/24/17 02/03/18 acetaminophen 500 mg capsule 1,000 mg PO Q6H PRN #180 cap 12/12/17 02/03/18 naltrexone 50 mg tablet 1.5 mg PO DAILY tab 01/01/18 01/11/18 oxycodone 5 mg tablet 5 mg PO Q6H PRN #30 tab MDD 20 mg 02/05/18 Previous Rx's Medication Instructions Recorded warfarin [Coumadin] 0 - 2 tab PO DAILY #90 tab 02/11/17 diaper,brief,adult,disposable #3 box 05/23/17 [Depend Underwear For Women S-M] lisinopril 10 mg PO DAILY #90 tab-cap 05/23/17 tamsulosin 1 - 2 cap PO HS #60 tab-cap 07/29/17 bumetanide 0.5 tab PO DAILY #45 tab-cap 09/30/17 meclizine 1 - 2 tab PO Q6H PRN #360 tab 09/30/17 metoprolol tartrate 12.5 mg PO BID #90 tab-cap 11/24/17 acetaminophen 500 mg capsule 1,000 mg PO Q6H PRN #180 cap 12/12/17 oxycodone 5 mg tablet 5 mg PO Q6H PRN #30 tab MDD 20 mg 02/05/18 Allergies Allergy/AdvReac Type Severity Reaction Status Date / Time fluoxetine Allergy unkown Unverified 01/11/18 12:34 Sulfa (Sulfonamide Allergy unknown Unverified 01/11/18 12:34 Antibiotics) codeine AdvReac headaches Unverified 01/11/18 12:34 General Stated Complaint: Urinary ADAM: 3 Review of Systems Review of Systems All systems reviewed & are unremarkable except as noted in HPI and below Constitutional Denies chills, Denies fever(s) and Denies weakness Eyes Denies loss of vision ENT Denies change in voice Cardiovascular Denies chest pain and Denies dyspnea Respiratory Denies dyspnea Gastrointestinal Denies abdominal pain, Denies nausea and Denies vomiting Genitourinary Denies dysuria Musculoskeletal Denies joint swelling Integumentary/Breasts Denies rash Neurologic Denies loss of vision and Denies weakness Psychiatric Denies depression Endocrine Denies cold intolerance and Denies heat intolerance Allergic/Immunologic Denies urticaria Exam Const General: no acute distress Orientation: alert [facility] Head: normal to inspection Ears: external ears normal General nose exam: external nose normal Mouth: moist mucous membranes Eyes General: appearance normal, both eyes and all related structures Neck Neck: normal visual inspection Resp Effort & Inspection: normal respiratory effort and able to speak in complete sentences Cardio Rate: regular rate Back/Spine/Pelvis Back: no CVA tenderness Skin General skin exam: no rashes or lesions noted Neuro General: alert and oriented x3 Extrem General: normal to inspection Psych Mental Status: mental status grossly normal Course Vital Signs Temperature 36.8 C 02/19/18 13:53 Pulse 78 02/19/18 13:53 Respiratory Rate 18 02/19/18 13:53 Blood Pressure 139/71 02/19/18 13:53 Pulse Oximetry 99 02/19/18 13:53 Temperature 36.8 C 02/19/18 13:53 Temperature Source Temporal Artery Scan 02/19/18 13:53 Pulse 78 02/19/18 13:53 Respiratory Rate 18 02/19/18 13:53 Respiratory Effort 02/19/18 13:56 Blood Pressure 139/71 02/19/18 13:53 Blood Pressure Position Sitting 02/19/18 13:53 Pulse Oximetry 99 02/19/18 13:53 Pain Level 10 02/19/18 13:53
[2018-02-19 14:33] LABS: Bilirubin Negative (Negative); Blood Large (Negative); Clarity Clear; Glucose Negative (Negative); Ketones Negative (Negative); Leukocyte Esterase Negative (Negative); Nitrite Negative (Negative); Urobilinogen 0.2 EU/dL (Up TO 0.2); pH 5.5 (5-8)
[2018-02-19 14:46] LABS: WBC 0-2 HPF (0-5)
[2018-02-19 14:47] LABS: Bacteria Negative HPF (Negative); C & S Indicated? No; Casts Negative LPF (Negative); Crystals Negative HPF (Negative); Epithelial Cells Negative HPF (Negative); Mucus Negative (Negative); RBC 20-50 (0-2)
[2018-02-19 15:34] VITALS: BP 133/74; PULSE 97; RESP 16; TEMP 36.8; O2SAT 97
== END 2018-02-19 15:33 | disposition home or self-care (01) ==
LOC: ER 15:38
PROVIDERS: Emergency Provider Emergency Medicine; PCP Family Medicine
DX: R31.29 Other microscopic hematuria (principal)
CPT/HCPCS: 99282; 81003; 81015

== ENCOUNTER 2018-03-06 06:35 | Emergency (ER) | payer MEDICARE, MEDICAID, SELFPAY ==
[2018-03-06 06:42] VITALS: BP 119/70; PULSE 100; RESP 20; TEMP 36.3; O2SAT 93
--- NOTE | 2018-03-06 06:49 | W.ED.GENAD ---
Discharge Plan Disposition Patient Disposition: HOME Condition: Stable Discharge Details Chief Complaint: Nk/Back Pain Clinical Impression: Chronic low back pain Reason For Visit: ZENA Primary Care Provider: Ian Soliz ED Provider: Benigno Perez Home Meds and New Rx's Prescriptions: No Action naltrexone 50 mg tablet 1.5 mg PO DAILY RF: 0 warfarin [Coumadin] 5 MG tablet 0 - 2 tab PO DAILY Qty: 90 RF: 4 lisinopril 10 MG tablet 10 mg PO DAILY Qty: 90 RF: 4 diaper,brief,adult,disposable [Depend Underwear For Women S-M] 1 EACH misc 1 ea Miscellaneous QID Qty: 3 RF: 4 tamsulosin 0.4 MG capsule 1 - 2 cap PO HS Qty: 60 RF: 3 meclizine 12.5 MG tablet 1 - 2 tab PO Q6H PRN Qty: 360 RF: 3 bumetanide 2 MG tablet 0.5 tab PO DAILY Qty: 45 RF: 4 metoprolol tartrate 25 MG tablet 12.5 mg PO BID Qty: 90 RF: 3 acetaminophen 500 mg capsule 1,000 mg PO Q6H PRN (Reason: pain) Qty: 180 RF: 4 aspirin [Adult Low Dose Aspirin] 81 MG tablet,delayed release (DR/EC) 81 mg PO DAILY RF: 0 Discharge Instructions Instructions: Low Back Strain (ED) Medical Decision Making 62 yo male with hx of afib, chronic lower back pain, who recently had his pain medication d/c'd this week with his pcp, comes in with continued lower back pain. Denies fevers, difficulty urinating, no saddle anesthesia, and has no weakness on exam with 2+ reflexes and intact distal sensation. He slept for the first time in the warming fdc last night and thinks this may have increased his pain. Has right lower back pain, no cva tenderness. No findings on exam to suggest sea, cauda equina and do not feel emergent mri indicated. NO weight loss or night sweats so doubt cancer and do not feel xray or lab work indicated. No pulsatile mass to suggest aaa, do not feel ct/u/s indicated. ADvised tylenol and f/u with his pcp Differential Diagnosis strain, contusion, sprain HPI General Mode of arrival: EMS. Date/Time Provider Initiated Documentation: 03/06/18 06:43. Limitations to Documentation: no limitations. Information obtained by: patient. History of Present Illness 62 year old M presents to the emergency department with the chief complaint of right lower back pain, described as moderate, with intensity rated at 6. Quality is described as aching, and is localized to the back. Patient reports no radiation. Patient started experiencing this year(s) (3) and it has been intermittent. No relieving factors improve symptom(s), No exacerbating factors reported . Patient notes no other symptoms.. Patient did receive the following treatments prior to arrival, other (tylenol) Related Data Home Medications Medication Instructions Recorded Confirmed aspirin [Adult Low Dose Aspirin] 81 mg PO DAILY 08/07/12 02/03/18 warfarin [Coumadin] 0 - 2 tab PO DAILY #90 tab 02/11/17 02/03/18 diaper,brief,adult,disposable #3 box 05/23/17 02/03/18 [Depend Underwear For Women S-M] lisinopril 10 mg PO DAILY #90 tab-cap 05/23/17 02/03/18 tamsulosin 1 - 2 cap PO HS #60 tab-cap 07/29/17 02/03/18 bumetanide 0.5 tab PO DAILY #45 tab-cap 09/30/17 02/03/18 meclizine 1 - 2 tab PO Q6H PRN #360 tab 09/30/17 02/03/18 metoprolol tartrate 12.5 mg PO BID #90 tab-cap 11/24/17 02/03/18 acetaminophen 500 mg capsule 1,000 mg PO Q6H PRN #180 cap 12/12/17 02/03/18 naltrexone 50 mg tablet 1.5 mg PO DAILY tab 01/01/18 01/11/18 Previous Rx's Medication Instructions Recorded warfarin [Coumadin] 0 - 2 tab PO DAILY #90 tab 02/11/17 diaper,brief,adult,disposable #3 box 05/23/17 [Depend Underwear For Women S-M] lisinopril 10 mg PO DAILY #90 tab-cap 05/23/17 tamsulosin 1 - 2 cap PO HS #60 tab-cap 07/29/17 bumetanide 0.5 tab PO DAILY #45 tab-cap 09/30/17 meclizine 1 - 2 tab PO Q6H PRN #360 tab 09/30/17 metoprolol tartrate 12.5 mg PO BID #90 tab-cap 11/24/17 acetaminophen 500 mg capsule 1,000 mg PO Q6H PRN #180 cap 12/12/17 Allergies Allergy/AdvReac Type Severity Reaction Status Date / Time fluoxetine Allergy unkown Unverified 03/06/18 06:49 Sulfa (Sulfonamide Allergy unknown Unverified 03/06/18 06:49 Antibiotics) codeine AdvReac headaches Unverified 03/06/18 06:49 General Stated Complaint: Nk/Back Pain ADAM: 4 Review of Systems Review of Systems All systems reviewed & are unremarkable except as noted in HPI and below Constitutional Denies chills, Denies fever(s) and Denies weakness Cardiovascular Denies chest pain and Denies dyspnea Respiratory Denies dyspnea Gastrointestinal Denies abdominal pain, Denies nausea and Denies vomiting Genitourinary Denies dysuria Musculoskeletal Denies joint swelling Integumentary/Breasts Denies rash Neurologic Denies weakness [facility] Social History Smoking/Tobacco Use Status: Never alcohol intake: never Exam Const General: no acute distress Orientation: alert HENMT Head: normal to inspection Ears: external ears normal General nose exam: external nose normal Mouth: moist mucous membranes Eyes General: appearance normal, both eyes and all related structures Neck Neck: normal visual inspection Resp Effort & Inspection: normal respiratory effort and able to speak in complete sentences Cardio Rate: regular rate Back/Spine/Pelvis Back: no CVA tenderness Skin General skin exam: no rashes or lesions noted Neuro General: alert and oriented x3 Extrem General: normal to inspection Psych Mental Status: mental status grossly normal Course Vital Signs Temperature 36.3 C L 03/06/18 06:42 Pulse 100 H 03/06/18 06:42 Respiratory Rate 20 03/06/18 06:42 Blood Pressure 119/70 03/06/18 06:42 Pulse Oximetry 93 L 03/06/18 06:42 Temperature 36.3 C L 03/06/18 06:42 Temperature Source Temporal Artery Scan 03/06/18 06:42 Pulse 100 H 03/06/18 06:42 Respiratory Rate 20 03/06/18 06:42 Respiratory Effort 03/06/18 06:42 Blood Pressure 119/70 03/06/18 06:42 Pulse Oximetry 93 L 03/06/18 06:42 Oxygen Delivery Method Room Air 03/06/18 06:42 Oxygen Flow Rate 0 03/06/18 06:42 Pain Level 10 03/06/18 06:42
[2018-03-06] MEDS: Acetaminophen 500 MG TAB 1000 MG PO (06:54)
--- NOTE | 2018-03-06 06:55 | ED.GENADUL_ITS ---
Discharge Plan Disposition Patient Disposition: HOME Condition: Stable Discharge Details Chief Complaint: Nk/Back Pain Clinical Impression: Chronic low back pain Reason For Visit: ZENA Primary Care Provider: Ian Soliz ED Provider: Benigno Perez Home Meds and New Rx's Prescriptions: No Action naltrexone 50 mg tablet 1.5 mg PO DAILY RF: 0 warfarin [Coumadin] 5 MG tablet 0 - 2 tab PO DAILY Qty: 90 RF: 4 lisinopril 10 MG tablet 10 mg PO DAILY Qty: 90 RF: 4 diaper,brief,adult,disposable [Depend Underwear For Women S-M] 1 EACH misc 1 ea Miscellaneous QID Qty: 3 RF: 4 tamsulosin 0.4 MG capsule 1 - 2 cap PO HS Qty: 60 RF: 3 meclizine 12.5 MG tablet 1 - 2 tab PO Q6H PRN Qty: 360 RF: 3 bumetanide 2 MG tablet 0.5 tab PO DAILY Qty: 45 RF: 4 metoprolol tartrate 25 MG tablet 12.5 mg PO BID Qty: 90 RF: 3 acetaminophen 500 mg capsule 1,000 mg PO Q6H PRN (Reason: pain) Qty: 180 RF: 4 aspirin [Adult Low Dose Aspirin] 81 MG tablet,delayed release (DR/EC) 81 mg PO DAILY RF: 0 Discharge Instructions Instructions: Low Back Strain (ED) Medical Decision Making 62 yo male with hx of afib, chronic lower back pain, who recently had his pain medication d/c'd this week with his pcp, comes in with continued lower back pain. Denies fevers, difficulty urinating, no saddle anesthesia, and has no weakness on exam with 2+ reflexes and intact distal sensation. He slept for the first time in the warming snf last night and thinks this may have increased his pain. Has right lower back pain, no cva tenderness. No findings on exam to suggest sea, cauda equina and do not feel emergent mri indicated. NO weight loss or night sweats so doubt cancer and do not feel xray or lab work indicated. No pulsatile mass to suggest aaa, do not feel ct/u/s indicated. ADvised tylenol and f/u with his pcp Differential Diagnosis strain, contusion, sprain HPI General Mode of arrival: EMS . Date/Time Provider Initiated Documentation: 03/06/18 06:43 . Limitations to Documentation: no limitations . Information obtained by: patient . History of Present Illness 62 year old M presents to the emergency department with the chief complaint of right lower back pain, described as moderate, with intensity rated at 6. Quality is described as aching, and is localized to the back. Patient reports no radiation. Patient started experiencing this year(s) (3) and it has been intermittent. No relieving factors improve symptom(s), No exacerbating factors reported . Patient notes no other symptoms.. Patient did receive the following treatments prior to arrival, other (tylenol) Related Data Home Medications Medication Instructions Recorded Confirmed aspirin [Adult Low Dose Aspirin] 81 mg PO DAILY 08/07/12 02/03/18 warfarin [Coumadin] 0 - 2 tab PO DAILY #90 tab 02/11/17 02/03/18 diaper,brief,adult,disposable #3 box 05/23/17 02/03/18 [Depend Underwear For Women S-M] lisinopril 10 mg PO DAILY #90 tab-cap 05/23/17 02/03/18 tamsulosin 1 - 2 cap PO HS #60 tab-cap 07/29/17 02/03/18 bumetanide 0.5 tab PO DAILY #45 tab-cap 09/30/17 02/03/18 meclizine 1 - 2 tab PO Q6H PRN #360 tab 09/30/17 02/03/18 metoprolol tartrate 12.5 mg PO BID #90 tab-cap 11/24/17 02/03/18 acetaminophen 500 mg capsule 1,000 mg PO Q6H PRN #180 cap 12/12/17 02/03/18 naltrexone 50 mg tablet 1.5 mg PO DAILY tab 01/01/18 01/11/18 Previous Rx's Medication Instructions Recorded warfarin [Coumadin] 0 - 2 tab PO DAILY #90 tab 02/11/17 diaper,brief,adult,disposable #3 box 05/23/17 [Depend Underwear For Women S-M] lisinopril 10 mg PO DAILY #90 tab-cap 05/23/17 tamsulosin 1 - 2 cap PO HS #60 tab-cap 07/29/17 bumetanide 0.5 tab PO DAILY #45 tab-cap 09/30/17 meclizine 1 - 2 tab PO Q6H PRN #360 tab 09/30/17 metoprolol tartrate 12.5 mg PO BID #90 tab-cap 11/24/17 acetaminophen 500 mg capsule 1,000 mg PO Q6H PRN #180 cap 12/12/17 Allergies Allergy/AdvReac Type Severity Reaction Status Date / Time fluoxetine Allergy unkown Unverified 03/06/18 06:49 Sulfa (Sulfonamide Allergy unknown Unverified 03/06/18 06:49 Antibiotics) codeine AdvReac headaches Unverified 03/06/18 06:49 General Stated Complaint: Nk/Back Pain ADAM: 4 Review of Systems Review of Systems All systems reviewed & are unremarkable except as noted in HPI and below Constitutional Denies chills, Denies fever(s) and Denies weakness Cardiovascular Denies chest pain and Denies dyspnea Respiratory Denies dyspnea Gastrointestinal Denies abdominal pain, Denies nausea and Denies vomiting Genitourinary Denies dysuria Musculoskeletal Denies joint swelling Integumentary/Breasts Denies rash Neurologic Denies weakness [facility] Social History Smoking/Tobacco Use Status: Never alcohol intake: never Exam Const General: no acute distress Orientation: alert HENMT Head: normal to inspection Ears: external ears normal General nose exam: external nose normal Mouth: moist mucous membranes Eyes General: appearance normal, both eyes and all related structures Neck Neck: normal visual inspection Resp Effort & Inspection: normal respiratory effort and able to speak in complete sentences Cardio Rate: regular rate Back/Spine/Pelvis Back: no CVA tenderness Skin General skin exam: no rashes or lesions noted Neuro General: alert and oriented x3 Extrem General: normal to inspection Psych Mental Status: mental status grossly normal Course Vital Signs Temperature 36.3 C L 03/06/18 06:42 Pulse 100 H 03/06/18 06:42 Respiratory Rate 20 03/06/18 06:42 Blood Pressure 119/70 03/06/18 06:42 Pulse Oximetry 93 L 03/06/18 06:42 Temperature 36.3 C L 03/06/18 06:42 Temperature Source Temporal Artery Scan 03/06/18 06:42 Pulse 100 H 03/06/18 06:42 Respiratory Rate 20 03/06/18 06:42 Respiratory Effort 03/06/18 06:42 Blood Pressure 119/70 03/06/18 06:42 Pulse Oximetry 93 L 03/06/18 06:42 Oxygen Delivery Method Room Air 03/06/18 06:42 Oxygen Flow Rate 0 03/06/18 06:42 Pain Level 10 03/06/18 06:42
== END 2018-03-06 07:20 | disposition home or self-care (01) ==
LOC: ER 07:29
PROVIDERS: Emergency Provider Emergency Medicine; PCP Family Medicine
DX: M54.5 Low back pain (principal); G89.29 Other chronic pain; I10 Essential (primary) hypertension
CPT/HCPCS: 99283

== ENCOUNTER 2018-04-19 20:08 | Emergency (ER) | payer MEDICARE, MEDICAID, SELFPAY ==
[2018-04-19 20:08] VITALS: BP 130/80; PULSE 82; RESP 18; TEMP 36.1; O2SAT 97
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
[2018-04-19 20:57] LABS: Abs Immature Grans 0.06 k/cumm (0.0-0.09); Absolute Basophil Count 0.06 k/cumm (0.0-0.2); Absolute Eosinophil Count 0.58 k/cumm (0.0-0.7); Absolute Lymphocyte Count 1.95 k/cumm (1.2-3.4); Absolute Monocyte Count 0.97 k/cumm (0.11-0.7); Basophils % 0.5; Eosinophils % 5.2; HCT 45.3 % (40.0-50.0); HGB 14.4 g/dL (13.5-17.5); Immature Grans % 0.5; Lymphocytes % 17.5; Mean Corp. HGB Concentration 31.8 g/dL (32.0-36.0); Mean Corpuscular Hemoglobin 28.9 pg (27.0-33.0); Mean Platelet Volume 10.2 fL (8.0-11.0); Monocytes % 8.7; Neutrophils % 67.6; Platelet Count 219 x1000/uL (130-400); RBC 4.98 m/cumm (4.50-6.00); RBC Distribution Width 14.9 % (11.8-14.1); White Blood Cell Count 11.15 k/cumm (4.4-10.8)
[2018-04-19 20:59] LABS: Absolute Neutrophil Count 7.54 k/cumm (1.2-6.7)
[2018-04-19 21:08] LABS: INR 2.8 (0.9-1.1); Prothrombin Time 28.2 sec (9.3-11.0)
--- NOTE | 2018-04-20 09:34 | PDOC.ERCMPRO ---
Care Management Progress Note 04/20-Dr. Morin requested assistance with a PCP (Martínez) f/u as soon as possible for hemorrhoids. Referral faxed to [facility] this am.
== END 2018-04-19 22:20 | disposition home or self-care (01) ==
PROVIDERS: Emergency Provider Physician Assistant; PCP Family Medicine
DX: K64.9 Unspecified hemorrhoids (principal); I48.91 Unspecified atrial fibrillation; Z79.01 Long term (current) use of anticoagulants; I10 Essential (primary) hypertension
CPT/HCPCS: 36415; 99283; 85025; 85610

== ENCOUNTER 2018-06-25 02:30 | Outpatient (CLI) | payer MEDICARE, MEDICAID, SELFPAY ==
[2018-06-25 12:40] LABS: INR 1.9 (0.9-1.1); Prothrombin Time 19.5 sec (9.3-11.0)
[2018-06-25 12:41] LABS: Anion Gap 13.1 mmol/L (3-11); BUN 26 mg/dL (7-18); CO2 25.9 mmol/L (21.0-32.0); CREATININE 1.03 mg/dL (0.70-1.30); Calcium 9.6 mg/dL (8.5-10.1); Chloride 99 mmol/L (98-107); Glucose 112 mg/dL (70-100); Sodium 138 mmol/L (136-145)
[2018-06-25 12:45] LABS: Abs Immature Grans 0.04 k/cumm (0.0-0.09); Absolute Basophil Count 0.04 k/cumm (0.0-0.2); Absolute Eosinophil Count 0.32 k/cumm (0.0-0.7); Absolute Lymphocyte Count 1.16 k/cumm (1.2-3.4); Absolute Monocyte Count 1.02 k/cumm (0.11-0.7); Absolute Neutrophil Count 7.37 k/cumm (1.2-6.7); Basophils % 0.4; Eosinophils % 3.2; HCT 47.6 % (40.0-50.0); HGB 15.2 g/dL (13.5-17.5); Immature Grans % 0.4; Lymphocytes % 11.7; Mean Corp. HGB Concentration 31.9 g/dL (32.0-36.0); Mean Corpuscular Hemoglobin 28.6 pg (27.0-33.0); Mean Corpuscular Volume 89.5 fL (80-95); Monocytes % 10.3; Platelet Count 224 x1000/uL (130-400); RBC 5.32 m/cumm (4.50-6.00); RBC Distribution Width 14.9 % (11.8-14.1); White Blood Cell Count 9.95 k/cumm (4.4-10.8)
== END 2018-06-25 02:50 ==
PROVIDERS: PCP Family Medicine; Visit Provider Family Medicine
DX: I10 Essential (primary) hypertension (principal); K62.5 Hemorrhage of anus and rectum; I26.99 Other pulmonary embolism without acute cor pulmonale; Z79.01 Long term (current) use of anticoagulants
CPT/HCPCS: 36415; 80048; 85025; 85610

== ENCOUNTER 2018-07-13 07:00 | Outpatient (CLI) | payer MEDICARE, MEDICAID, SELFPAY ==
[2018-07-13 12:50] LABS: INR 1.5 (0.9-1.1); Prothrombin Time 15.3 sec (9.3-11.0)
== END 2018-07-13 07:20 ==
PROVIDERS: PCP Family Medicine; Visit Provider Family Medicine
DX: I26.99 Other pulmonary embolism without acute cor pulmonale (principal); Z79.01 Long term (current) use of anticoagulants
CPT/HCPCS: 36415; 85610

== ENCOUNTER 2018-10-07 01:17 | Outpatient (CLI) | payer MEDICARE, MEDICAID, SELFPAY ==
[2018-10-07 10:40] LABS: INR 2.1 (0.9-1.1); Prothrombin Time 21.1 sec (9.3-11.0)
== END 2018-10-07 01:37 ==
PROVIDERS: PCP Family Medicine; Visit Provider Family Medicine
DX: I26.99 Other pulmonary embolism without acute cor pulmonale (principal); Z79.01 Long term (current) use of anticoagulants
CPT/HCPCS: 36415; 85610

== ENCOUNTER 2018-11-09 01:29 | Outpatient (CLI) | payer MEDICARE, MEDICAID, SELFPAY ==
[2018-11-09 10:08] LABS: INR 3.9 (0.9-1.1); Prothrombin Time 39.6 sec (9.3-11.0)
== END 2018-11-09 01:49 ==
PROVIDERS: PCP Family Medicine; Visit Provider Family Medicine
DX: I26.99 Other pulmonary embolism without acute cor pulmonale (principal); I82.409 Acute embolism and thrombosis of unspecified deep veins of unspecified lower extremity; Z79.01 Long term (current) use of anticoagulants
CPT/HCPCS: 36415; 85610

== ENCOUNTER 2018-11-17 02:17 | Outpatient (CLI) | payer MEDICARE, MEDICAID, SELFPAY ==
[2018-11-17 10:31] LABS: INR 3.5 (0.9-1.1); Prothrombin Time 35.3 sec (9.3-11.0)
== END 2018-11-17 02:37 ==
PROVIDERS: PCP Family Medicine; Visit Provider Family Medicine
DX: I26.99 Other pulmonary embolism without acute cor pulmonale (principal); I82.409 Acute embolism and thrombosis of unspecified deep veins of unspecified lower extremity; Z79.01 Long term (current) use of anticoagulants
CPT/HCPCS: 36415; 85610

== ENCOUNTER 2018-12-03 10:45 | Inpatient (IN) | payer MEDICARE, MEDICAID, SELFPAY ==
[2018-12-03] VITALS (62 sets, daily range): BP systolic 103–123; BP diastolic 57–97; PULSE 77–159; RESP 14–51; TEMP 36.5–37; O2SAT 94–99
--- NOTE | 2018-12-03 10:52 | W.ED.GENAD ---
Discharge Plan Disposition Patient Disposition: [facility] INPATIENT Condition: Stable Discharge Details Chief Complaint: SOB Clinical Impression: Obstructive sleep apnea hypopnea, severe, Stasis edema with ulcer, Acute dyspnea Primary Care Provider: Ian Soliz ED Provider: Carmelo Perez Home Meds and New Rx's Prescriptions: No Action lisinopril 10 mg tablet 10 mg PO DAILY Qty: 90 RF: 4 tamsulosin 0.4 mg capsule See Rx Instructions PO HS Qty: 180 RF: 3 (DME) Depend Underwear For Women S-M 1 EACH misc 1 ea Miscellaneous QID Qty: 3 RF: 4 warfarin [Coumadin] 5 mg tablet See Rx Instructions PO DAILY Qty: 90 RF: 4 acetaminophen 500 mg capsule 1,000 mg PO Q6H PRN (Reason: pain) Qty: 180 RF: 4 meclizine 12.5 mg tablet See Rx Instructions PO Q6H PRN Qty: 90 RF: 3 bumetanide 2 mg tablet 1 mg PO DAILY Qty: 45 RF: 4 metoprolol tartrate 25 mg tablet 12.5 mg PO BID Qty: 90 RF: 3 aspirin [Adult Low Dose Aspirin] 81 MG tablet,delayed release (DR/EC) 81 mg PO DAILY RF: 0 Medical Decision Making Labs unremarkable, as his chest x-ray. CTA obtained due to patient's history of DVTs and pulmonary emboli as well as his atrial fibrillation and presentation of dyspnea with tachypnea in ED. Given patient's chronic back pain as well as his obesity and sleep apnea, it was very difficult to get him to lie flat for CT. It did require dosing with fentanyl as well as Ativan, which was performed with pulse oximetry as well as respiratory therapy and BiPAP was applied for additional support. He has remained with pulse oximetry greater than 96% throughout his entire ED course. He did have some atelectasis on his imaging which may be adding to his dyspnea. I feel much of it is attributed to his severe obstructive sleep apnea with hypoxia as he has not been using his CPAP at home since he lost it 1 month ago. He will need CPAP at night and also needs wound care and assistance with daily living as he is unable to even stand and ambulate to the restroom but alone take his medications appropriately. He is currently living independently does not have any family or support system in place. For these reasons I will be contacting hospitalist for admission. He is very happy with this plan as he does not feel he can adequately take care of himself at home. Dr. Lorenz was consulted, he will be in to see patient for admission. Medical Records Medical records reviewed: Yes I reviewed the patient's medical records. Lab Data Lab results reviewed: Yes I reviewed the patient's lab results. ECG Data Attestation: I personally reviewed and interpreted this ECG (s) as follows: (Atrial fibrillation, no tachycardia or acute ST or T wave changes.) JULIETA Cano is a 63-year-old man with history of morbid obesity, AFib anticoagulated, ANNETTA, PE, cognitive impairment, CVA, chronic back pain, lower extremity edema, coronary artery disease, presenting to the emergency department for evaluation of difficulty breathing. While here he also does admit to having chest pain. He was recently hospitalized at [facility], discharged 1 week ago to home. Over the past several days has been developing shortness of breath. On further questioning he states he has been short of breath for the past few weeks. He is unable to give me the details of his visit and hospitalization at [facility] but it sounds like he went there for treatment of his nonhealing ulcers of his lower legs and ended up getting hospitalized for a week. He was discharged home to an apartment where he lives unassisted however he is unable to perform any of his own wound care as he is unable to reach him physically unwrap his legs due to his body habitus and chronic generalized weakness and deconditioning. General Date/Time Provider Initiated Documentation: 12/03/18 10:52. Related Data Home Medications Medication Instructions Recorded Confirmed aspirin [Adult Low Dose Aspirin] 81 mg PO DAILY 08/07/12 12/03/18 Depend Underwear For Women S-M #3 box 05/23/17 12/03/18 warfarin 5 mg tablet See Rx Instructions PO DAILY #90 04/28/18 12/03/18 tab acetaminophen 500 mg capsule 1,000 mg PO Q6H PRN #180 cap 05/25/18 12/03/18 lisinopril 10 mg tablet 10 mg PO DAILY #90 tab-cap 05/26/18 12/03/18 tamsulosin 0.4 mg capsule See Rx Instructions PO HS #180 05/26/18 12/03/18 tab-cap meclizine 12.5 mg tablet See Rx Instructions PO Q6H PRN #90 07/28/18 12/03/18 tab bumetanide 2 mg tablet 1 mg PO DAILY #45 tab-cap 11/11/18 12/03/18 metoprolol tartrate 25 mg tablet 12.5 mg PO BID #90 tab-cap 11/11/18 12/03/18 Previous Rx's Medication Instructions Recorded Depend Underwear For Women S-M #3 box 05/23/17 warfarin 5 mg tablet See Rx Instructions PO DAILY #90 04/28/18 tab acetaminophen 500 mg capsule 1,000 mg PO Q6H PRN #180 cap 05/25/18 lisinopril 10 mg tablet 10 mg PO DAILY #90 tab-cap 05/26/18 tamsulosin 0.4 mg capsule See Rx Instructions PO HS #180 05/26/18 tab-cap meclizine 12.5 mg tablet See Rx Instructions PO Q6H PRN #90 07/28/18 tab bumetanide 2 mg tablet 1 mg PO DAILY #45 tab-cap 11/11/18 metoprolol tartrate 25 mg tablet 12.5 mg PO BID #90 tab-cap 11/11/18 Allergies Allergy/AdvReac Type Severity Reaction Status Date / Time fluoxetine Allergy unkown Verified 12/03/18 11:01 Sulfa (Sulfonamide Allergy unknown Verified 12/03/18 11:01 Antibiotics) codeine AdvReac headaches Verified 12/03/18 11:01 General ADAM: 3 Review of Systems Constitutional Denies chills, Denies fatigue, Denies fever(s) and Denies lethargy Eyes Denies loss of vision ENT Denies nasal congestion and Denies sore throat Respiratory Denies cough Gastrointestinal Denies abdominal pain, Denies nausea and Denies vomiting Musculoskeletal Denies back pain, Denies muscle weakness and Denies numbness Integumentary/Breasts Denies rash Neurologic Denies focal weakness, Denies loss of vision and Denies numbness Endocrine Denies fatigue Hematologic/Lymphatic Denies easy bruising PFSH Social History Smoking/Tobacco Use Status: Never Alcohol Intake: never Drug use: Never What type of physical activity do you participate in: none Do you feel safe at home: Yes Do you feel safe in your relationship?: Yes Exam Narrative Exam Narrative: Tachypneic and unkempt Const General: cooperative HENMT Head: normal to inspection Ears: hearing grossly normal bilaterally Eyes EOM: EOM intact bilaterally Neck Neck: normal visual inspection Resp Auscultation: clear to auscultation bilaterally Other: Tachypneic, able speak in complete sentences. No wheezing rales or rhonchi. Cardio Rate: regular rate Rhythm: regular rhythm Heart Sounds: no murmurs GI Palpation: soft and nontender Skin General skin exam: no rashes or lesions noted Neuro General: alert, awake and oriented x3 Speech: speech normal Gait: normal gait Extrem Other: Bilateral 2+ pitting edema with stasis dermatitis, weeping area right medial lower leg. No erythema or evidence of acute cellulitis. Dressings were in place and were removed for examination.
[2018-12-03 11:21] LABS: BE (Venous) 3.4 mmol/L (-3-3); HCO3 (Venous) 28 mmol/L (22-28); O2 Sat (Venous) 86 % (70-80); TCO2 (Venous) 25 mmol/L (22-29); pCO2 (Venous) 41 mm/Hg (34-47); pH (Venous) 7.44 (7.32-7.43); pO2 (Venous) 49 mm/Hg (28-44)
--- NOTE | 2018-12-03 11:22 | DI.RAD_ITS ---
SYMPTOM/DIAGNOSIS: CHEST PAIN AND DYSPNEA WORSENING OVER PAST 24 HOURS. CHEST X-RAY: Portable AP view. Comparison 11/08/16 There is poor inspiration. Cardiac silhouette appears within normal limits. There is plate atelectasis in the lung bases. No definite focal consolidating infiltrates or effusions seen. No pneumothorax is identified. IMPRESSION: Atelectasis in the lung bases.
[2018-12-03 11:24] LABS: Lactate 2.7 mmol/L (0.6-1.4)
[2018-12-03 11:36] LABS: Abs Immature Grans 0.04 k/cumm (0.0-0.09); Absolute Basophil Count 0.04 k/cumm (0.0-0.2); Absolute Eosinophil Count 0.35 k/cumm (0.0-0.7); Absolute Monocyte Count 0.77 k/cumm (0.11-0.7); Absolute Neutrophil Count 7.41 k/cumm (1.2-6.7); Basophils % 0.4; Eosinophils % 3.5; HCT 41.8 % (40.0-50.0); HGB 13.1 g/dL (13.5-17.5); Immature Grans % 0.4; Lymphocytes % 13.1; Mean Corp. HGB Concentration 31.3 g/dL (32.0-36.0); Mean Corpuscular Hemoglobin 28.1 pg (27.0-33.0); Mean Corpuscular Volume 89.5 fL (80-95); Mean Platelet Volume 9.4 fL (8.0-11.0); Monocytes % 7.8; Neutrophils % 74.8; Platelet Count 390 x1000/uL (130-400); RBC 4.67 m/cumm (4.50-6.00); RBC Distribution Width 15.6 % (11.8-14.1); White Blood Cell Count 9.91 k/cumm (4.4-10.8)
[2018-12-03 11:41] LABS: Bilirubin Negative (Negative); Blood Trace-intact (Negative); Clarity Clear (Clear); Glucose Negative (Negative); Ketones Negative (Negative); Leukocyte Esterase Trace (Negative); Nitrite Negative (Negative); Specific Gravity 1.015 (1.005-1.025); Urobilinogen 0.2 EU/dL (Up TO 0.2)
[2018-12-03 11:45] LABS: ALT 56 U/L (16-63); AST 22 U/L (15-37); Albumin 3.1 g/dL (3.4-5.0); Alkaline Phosphatase 85 U/L (46-116); Anion Gap 12.2 mmol/L (3-11); BUN 19 mg/dL (7-18); Bilirubin, Total 0.4 mg/dL (0.2-1.0); CO2 26.8 mmol/L (21.0-32.0); Chloride 101 mmol/L (98-107); Glucose 136 mg/dL (70-100); Magnesium 1.8 mg/dL (1.8-2.4); NT-proBNP 968 pg/mL; Potassium 3.8 mmol/L (3.5-5.1); Sodium 140 mmol/L (136-145); Total Protein 7.9 g/dL (6.4-8.2)
[2018-12-03 11:52] LABS: Bacteria Few HPF (Negative); C & S Indicated? Yes; Casts Negative LPF (Negative); Crystals Negative HPF (Negative); Epithelial Cells Few HPF (Negative); Mucus Moderate (Negative)
[2018-12-03 11:58] LABS: Troponin I < 0.05 ng/mL (0.00-0.06)
--- NOTE | 2018-12-03 12:23 | DI.CT_ITS ---
SYMPTOM/DIAGNOSIS: DYSPNEA, TACHYPNEA X 1 WEEK, H/O BILATEARAL PE [address] FOR PULMONARY EMBOLISM: CT angiography was performed with multi slice acquisition and multi planar and 3D reconstruction. Comparison is made with July The exam is quite limited by patient motion. The aorta and pulmonary arteries are well opacified with IV contrast. There is no evidence of aortic dissection. No central pulmonary emboli are seen. Branch vessel emboli could not be excluded due to motion. No pleural or pericardial effusions or infiltrates are seen. There is no evidence of pneumothorax. No thoracic compression fractures are present. IMPRESSION: Limited exam due to patient motion. There are no central pulmonary emboli. Branch vessel emboli could not be excluded.
[2018-12-03 12:54] LABS: INR 2.2 (0.9-1.1); Prothrombin Time 21.7 sec (9.3-11.0)
[2018-12-03] MEDS: fentaNYL 100 MCG/2 ML VIAL 50 MCG IVP ×2 (13:15→14:15)
[2018-12-03] MEDS: LORazepam 2 MG/ML VIAL 1 MG IVP (14:26)
[2018-12-03] MEDS: fentaNYL 100 MCG/2 ML VIAL IVP (16:10)
[2018-12-03] MEDS: Omnipaque 350 MG/ML 100 ML BTL IJ (16:23)
[2018-12-03] MEDS: Omnipaque 350 MG/ML 50 ML BTL IJ (16:24)
--- NOTE | 2018-12-03 16:43 | DI.VRAD_ITS ---
EXAM: CT Angiography Chest With Contrast EXAM DATE/TIME: 12/03/2018 12:25 PM CLINICAL HISTORY: 63 years old, male; Dyspnea and shortness of breath and tachypnea; Patient HX: Tachypnea x 1 week, HX of blood clots. ; Additional info: PT unable to lay completely flat for exam or follow breathing instructions. Study limited. TECHNIQUE: Imaging protocol: Computed tomographic angiography of the chest with intravenous contrast.There is adequate opacification of the pulmonary arteries. The main pulmonary artery measures 330 Hounsfield units. 3D rendering: MIP reconstructed images were created and reviewed. Radiation optimization: All CT scans at this facility use at least one of these dose optimization techniques: automated exposure control; mA and/or kV adjustment per patient size (includes targeted exams where dose is matched to clinical indication); or iterative reconstruction. Contrast material: OMNIPAQUE 350; Contrast volume: 125 ml; Contrast route: IV; COMPARISON: CR XR PORTABLE CHEST AP 12/03/2018 11:19 AM FINDINGS: Limitations: The examination is degraded by significant motion artifact. Pulmonary arteries: There are no intraluminal filling defects in the pulmonary trunk or main pulmonary arteries. Lobar and segmental pulmonary arteries cannot be adequately assessed due to significant motion artifact. Aorta: Unremarkable. No aortic aneurysm. Lungs: There are no focal air space opacities. Pleural space: Unremarkable. No pneumothorax. No pleural effusion. Heart: Unremarkable. No cardiomegaly. No pericardial effusion. Mediastinum: The trachea and main bronchi are patent. Lymph nodes: Unremarkable. No enlarged lymph nodes. Bones/joints: No definite acute osseous abnormality. Soft tissues: Unremarkable. IMPRESSION: 1. No intraluminal filling defects are identified within the main pulmonary arteries however the lobar and segmental branch arteries cannot be adequately assessed. If a pulmonary embolism remains of clinical concern, a follow-up CTA or an alternative imaging modality such as a VQ scan, pulmonary angiogram or lower extremity duplex US is suggested for further assessment. 2. There are no focal air space opacities. Remainder of non-emergent findings as described above. Dictated and Authenticated by: Josefa Berrios MD. Ordering:JESSICA Rhodes MD
[2018-12-03 18:35] LABS: D-Dimer 838 ng/mlFEU (<500)
[2018-12-03 18:36] LABS: Troponin I < 0.05 ng/mL (0.00-0.06)
--- NOTE | 2018-12-03 20:56 | HPE_ITS ---
Date of service: 12/03/18 Time of Service: 20:56 Assessment and Plan (1) Dyspnea: Current visit: Yes Status: Acute In light of his hx of PE and DVT and signs of acute RLE DVT and indeterminate CTA of his chest and little evidence to support either ACS or acute CHF exacerbation, I suspect he has had another PE given his relatively low therapeutic to subtherapeutic INR. For tonight, I am going to start him on full dose lovenox 1 mg/kg SC Q 12hr and adjust his warfarin dosing. I do not feel that there is any value into doing a V/Q scan as he can not tolerate lying on his back (I could not even get him to recline in the chair during a POCUS exam). I will scan his legs in the a.m. w/ US Qualifiers: Dyspnea type: shortness of breath Qualified Code(s): R06.02 - Shortness of breath; R06.00 - Dyspnea, unspecified; R06.01 - Orthopnea (2) DVT (deep venous thrombosis): Current visit: Yes Status: Suspected as above Qualifiers: Affected thrombotic vein of extremity: popliteal Chronicity: acute DVT location: lower extremity Laterality: right Qualified Code(s): I82.431 - Acute embolism and thrombosis of right popliteal vein (3) Hypertension: Current visit: No Status: Chronic continue current home meds. I am not sure as to the reasoning for [facility]. I will keep him on this in light of his HTN and his HFpEF. Qualifiers: Hypertension type: essential hypertension Qualified Code(s): I10 - Essential (primary) hypertension (4) Paroxysmal atrial fibrillation: Current visit: No Status: Chronic continue rate control w/ metoprolol and adjust his warfarin for INR of 2.5 to 3 (5) Anticoagulated on warfarin: Current visit: No Status: Chronic adjustment of warfarin to INR of 2.5 to 3 (6) History of pulmonary embolus (PE): Current visit: No Status: Chronic treatment as above (7) Stasis edema with ulcer: Current visit: Yes Status: Chronic I do not believe he has any acute infection, i.e. no fever, no leukocytosis and furthermore he completed 10 days of antibiotics (7d of Ancef and 3d of Keflex). However, I will ask wound care nurse to evaluate and implement recommendations of local wound care/dressings Qualifiers: Laterality: right Qualified Code(s): I87.311 - Chronic venous hypertension (idiopathic) with ulcer of right lower extremity; L97.919 - Non- pressure chronic ulcer of unspecified part of right lower leg with unspecified severity (8) Heart failure with preserved ejection fraction: Current visit: Yes Status: Acute continue bumex 2 mg daily along w/ lisinopril 10 mg daily. Qualifiers: Heart failure chronicity: chronic Qualified Code(s): I50.32 - Chronic diastolic (congestive) heart failure History of Present Illness Chief Complaint: shortness of breath Narrative: 63 yr old male w/ PMH of chronic venous stasis ulcers of his legs, ANNETTA, morbid obesity, HFpEF, DVT's, PE, afib, HTN and chronic back pain w/ radiculopathy who presented to the ER w/ increasing dyspnea at rest as well as w/ exertion. He was hospitalized at [facility] [place] [place]19-11/26/2018 with similar complaints of dyspnea as well as fever and rigors and increasing bilateral leg edema w/ erythema and weeping drainage from his legs. He was diagnosed w/ cellulitis of his RLE and w/ HFpEF. He was ruled out for AR and echo revealed LVEF 60% w/ normal sized LV although images were suboptimal and regional wall motion abnormalities could not be ruled out and RV size and function and PHTN could not be evaluated. He was felt to be fluid overloaded and was given iv diuretics. His cellulitis was treated w/ 7 days of iv Ancef. Upon discharge he was sent home on Bumex 2 mg daily and his lisinopril was discontinued (unclear as to the reason) and he was sent home on 3 more days of Keflex 500 mg QID. He says that he completed all of his antibiotics and he has been taking his Bumex as prescribed. In spite of this he continues to have bilateral leg edema R>L and dyspnea. He has to sleep in his recliner in a sitting up position d/t orthopnea. He has had occasional chest pains but primarily he says that he just can not get enough a ir. While at [facility] [place] it was recommended that he go on oxygen even during the day but he refused home oxygen. It was also recommended that he go to SNF for awhile but he also declined this. A referral to [facility] was made but he reportedly declined this, however, he denies making any declination. He has been chronically on warfarin for both his afib as well as d/t hx of PE and DVT'S dating back to 2013. His INR while at [facility] [place] was variable running between 2.8 on admission to low therapeutic to slightly subtherapeutic at 1.9 to 2.1. He was suppose to have follow up INR done through Dr. Soliz's office Thursday 11/30 however, no [facility] has seen him since discharge. He states that he takes his warfar in 5 mg daily. Workup in the ER included labs, EKG and CXR as well as CTA of chest. Labs included CMP, protime, CBC, UA, troponin, lactate, VBG. CMP was remarkable for slightly elevated AG of 12, BUN 19, glucose 136, lactate 2.1. Troponin was negative x 2 sets. pro-BNP was high at 968 ( which was lower than his level of 1805 on admission to [facility] [place] His INR is 2.2. d-dimer was elevated at 838 which is higher than his age adjusted level of 620. He underwent CXR that showed basilar atelectasis but no infiltrates or CHF. CTA of his chest was problematic in that he could not lie flat for the study and had to be sedated w/ fentanyl and ativan. Eventually the study was completed but was limited by motion artifacts. No intraluminal filling defects were seen at the main pulmmonary arteries however lobar and segmental branches were not adequately assessed. No air space opacities were seen. The patient is admitted for further evaluation of his dyspnea and treatment for probable recurrent PE and DVT as well as treatment of his venous stasis ulcers. Review of Systems Constitutional Denies chills, Reports daytime sleepiness, Reports fatigue, Denies fever(s), Reports snoring, Reports stops breathing during sleep and Reports weight gain Eyes Reports system reviewed and no additional complaints, except as docu ENT Reports system reviewed and no additional complaints, except as docu Cardiovascular Reports chest pain at rest, Denies syncope, Reports pedal edema, Reports edema, Reports leg ulcers, Reports leg edema, Denies palpitations, Reports dyspnea, Reports dyspnea on exertion, Reports orthopnea and Reports paroxysmal nocturnal dyspnea Respiratory Denies change in phlegm color, Denies chest congestion, Reports cough, Denies hemoptysis, Denies excessive phlegm production, Reports dyspnea, Reports dyspnea on exertion and Reports snoring Gastrointestinal Reports system reviewed and no additional complaints, except as [facility] Genitourinary Reports system reviewed and no additional complaints, [facility] Musculoskeletal Reports radiating pain into limb (right leg) Neurologic Denies syncope Endocrine Reports fatigue and Denies palpitations [facility] Medical History (Updated 12/04/18 @ 04:53 by Mau Lorenz) Anal fissure (Resolved) Anticoagulated on warfarin (Chronic) DVT w/ bilateral pulmonary emboli Benign prostatic hypertrophy (Chronic) Bleeding hemorrhoids (Chronic 10/28/17) Constipation (Chronic) Diverticulosis of sigmoid colon (Chronic 02/16/15) Heart failure with preserved ejection fraction (Acute) History of anal fissures (Chronic) History of pulmonary embolus (PE) (Chronic 08/27/13) Hyperlipidemia (Chronic) Hypertension (Chronic) Increased body mass index (Chronic) Low back pain (Chronic) Obstructive sleep apnea hypopnea, severe (Chronic 11/01/14) Osteoarthritis of hip (Chronic 05/07/13) right hip replacement Paroxysmal atrial fibrillation (Chronic 07/16/13) a. Clinically silent AFIB. b. Anticoagulation not indicated. c. Low-dose beta gabriela because of bradycardia at rest. 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) Raised prostate specific antigen (Chronic) Right hip pain (Chronic 09/30/17) Right leg DVT (Resolved 07/27/13) Sensorineural hearing loss of both ears (Chronic) Stasis edema with ulcer (Chronic) Surgical History History of umbilical hernia repair (Resolved) Repair of umbilical hernia (04/22/01) Family History family history Personal history of malignant neoplasm colon/prostate Social History Smoking/Tobacco Use Status: Never Alcohol Intake: never Drug use: Never What type of physical activity do you participate in: none Do you feel safe at home: Yes Do you feel safe in your relationship?: Yes Meds Home Medications Medication Instructions Recorded Confirmed Type aspirin [Adult Low Dose Aspirin] 81 mg PO DAILY 08/07/12 12/03/18 History Depend Underwear For Women S-M #3 box 05/23/17 12/03/18 Rx warfarin 5 mg tablet See Rx Instructions PO DAILY #90 04/28/18 12/03/18 Rx tab acetaminophen 500 mg capsule 1,000 mg PO Q6H PRN #180 cap 05/25/18 12/03/18 Rx lisinopril 10 mg tablet 10 mg PO DAILY #90 tab-cap 05/26/18 12/03/18 Rx tamsulosin 0.4 mg capsule See Rx Instructions PO HS #180 05/26/18 12/03/18 Rx tab-cap meclizine 12.5 mg tablet See Rx Instructions PO Q6H PRN #90 07/28/18 12/03/18 Rx tab bumetanide 2 mg tablet 1 mg PO DAILY #45 tab-cap 11/11/18 12/03/18 Rx metoprolol tartrate 25 mg tablet 12.5 mg PO BID #90 tab-cap 11/11/18 12/03/18 Rx Allergies Allergy/AdvReac Type Severity Reaction Status Date / Time fluoxetine Allergy unkown Verified 12/03/18 11:01 Sulfa (Sulfonamide Allergy unknown Verified 12/03/18 11:01 Antibiotics) codeine AdvReac headaches Verified 12/03/18 11:01 Exam Cardio Jugular venous pressure: other (unable to discern d/t obesity) Palpation: normal PMI Rate: regular rate Rhythm: abnormal rhythm irregularly irregular Heart Sounds: no gallops, no murmurs and no rubs Bruits: no abdominal aortic bruits and no carotid bruits Pulses: posterior tibial pulses present bilaterally diminished and dorsalis pedis pulses present bilaterally 2+ GI Inspection: large pannus and obesity Palpation: soft and nontender Percussion: normal to percussion Auscultation: normal bowel sounds Rectal Exam: deferred General: other (bermudez catheter in place (placed by ER), draining clear yellow urine) Back/Spine/Pelvis Back: no CVA tenderness Cervical Spine: normal cervical lordosis Thoracic/Lumbar Spine: thoracic and lumbar spine normal to inspection Skin Rashes: rashes noted bilateral anterior lower leg color brawny brown and with an erythematous base and other (stasis dermatitis) Wounds: wounds noted (bilateral stasis superficial skin ulcerations over pretibial surfaces) Nails: yellow and thickened Neuro General: alert, awake, oriented x3, moves all extremities and no focal motor deficits Extrem General: calf tenderness on the right and edema Laterality: bilateral (both lower legs R>L) Right lower extremity: lower leg Details: tenderness Location: of the posterior calf Psych Appearance: disheveled Mental Status: mental status grossly normal Speech and Movement: speech and movement normal Mood: congruent mood Affect: normal affect Attitude: cooperative Thought Process: normal Thought Content: normal Insight: fair Judgment: fair Results Imaging Chest x-ray: report reviewed CT scan - chest: report reviewed EKG: image reviewed (afib 105 bpm, low voltage) Labs : 12/03/18 11:14 12/03/18 11:14 Laboratory Results - last 24 hr 12/03/18 12/03/18 12/03/18 11:14 11:14 11:14 WBC 9.91 RBC 4.67 Hgb 13.1 L Hct 41.8 MCV 89.5 MCH 28.1 MCHC 31.3 L RDW 15.6 H Plt Count 390 MPV 9.4 Immature Gran % 0.4 Neutrophils % 74.8 Lymphocytes % 13.1 Monocytes % 7.8 Eosinophils % 3.5 Basophils % 0.4 Absolute Neutrophils 7.41 H Absolute Lymphocytes 1.30 Absolute Monocytes 0.77 H Absolute Eosinophils 0.35 Absolute Basophils 0.04 PT 21.7 H D INR 2.2 H D D-Dimer VBG pH VBG pCO2 VBG pO2 VBG HCO3 VBG Total CO2 VBG O2 Saturation VBG Base Excess Sodium 140 Potassium 3.8 Chloride 101 Carbon Dioxide 26.8 Anion Gap 12.2 H BUN 19 H Creatinine 1.00 Estimated GFR/1.73 m2 >= 60.00 Glucose 136 H Lactate Calcium 9.0 Magnesium 1.8 Total Bilirubin 0.4 AST 22 ALT 56 Alkaline Phosphatase 85 Troponin I < 0.05 NT-Pro-B Natriuret Pep 968 H Total Protein 7.9 Albumin 3.1 L Urine Color Urine Clarity Urine pH Ur Specific Bayard Urine Protein Urine Ketones Urine Blood Urine Nitrite Urine Bilirubin Urine Urobilinogen Ur Leukocyte Esterase Urine RBC Urine WBC Ur Epithelial Cells Urine Crystals Urine Bacteria Urine Casts Urine Mucus Ur Culture Indicated? Urine Glucose 12/03/18 12/03/18 12/03/18 11:14 11:14 11:25 WBC RBC Hgb Hct MCV MCH MCHC RDW Plt Count MPV Immature Gran % Neutrophils % Lymphocytes % Monocytes % Eosinophils % Basophils % Absolute Neutrophils Absolute Lymphocytes Absolute Monocytes Absolute Eosinophils Absolute Basophils PT INR D-Dimer VBG pH 7.44 H VBG pCO2 41 VBG pO2 49 H VBG HCO3 28 VBG Total CO2 25 VBG O2 Saturation 86 H VBG Base Excess 3.4 H Sodium Potassium Chloride Carbon Dioxide Anion Gap BUN Creatinine Estimated GFR/1.73 m2 Glucose Lactate 2.7 H* Calcium Magnesium Total Bilirubin AST ALT Alkaline Phosphatase Troponin I NT-Pro-B Natriuret Pep Total Protein Albumin Urine Color Yellow Urine Clarity Clear Urine pH 6.0 Ur Specific Bayard 1.015 Urine Protein Negative Urine Ketones Negative Urine Blood Trace-intact H Urine Nitrite Negative Urine Bilirubin Negative Urine Urobilinogen 0.2 Ur Leukocyte Esterase Trace H Urine RBC 3-5 H Urine WBC 3-5 Ur Epithelial Cells Few Urine Crystals Negative Urine Bacteria Few Urine Casts Negative Urine Mucus Moderate Ur Culture Indicated? Yes Urine Glucose Negative 12/03/18 12/03/18 17:50 17:50 WBC RBC Hgb Hct MCV MCH MCHC RDW Plt Count MPV Immature Gran % Neutrophils % Lymphocytes % Monocytes % Eosinophils % Basophils % Absolute Neutrophils Absolute Lymphocytes Absolute Monocytes Absolute Eosinophils Absolute Basophils PT INR D-Dimer 838 H VBG pH VBG pCO2 VBG pO2 VBG HCO3 VBG Total CO2 VBG O2 Saturation VBG Base Excess Sodium Potassium Chloride Carbon Dioxide Anion Gap BUN Creatinine Estimated GFR/1.73 m2 Glucose Lactate Calcium Magnesium Total Bilirubin AST ALT Alkaline Phosphatase Troponin I < 0.05 NT-Pro-B Natriuret Pep Total Protein Albumin Urine Color Urine Clarity Urine pH Ur Specific Bayard Urine Protein Urine Ketones Urine Blood Urine Nitrite Urine Bilirubin Urine Urobilinogen Ur Leukocyte Esterase Urine RBC Urine WBC Ur Epithelial Cells Urine Crystals Urine Bacteria Urine Casts Urine Mucus Ur Culture Indicated? Urine Glucose Last Vital Signs Temp 37 C 12/03/18 10:53 Pulse 98 H 12/03/18 18:51 Resp 25 H 12/03/18 18:20 BP 111/97 H 12/03/18 15:46 Pulse Ox 96 12/03/18 16:50
[2018-12-03 22:03] LABS: Lactate 2.1 mmol/L (0.6-1.4)
[2018-12-03] MEDS: Warfarin 5 MG TAB PO (22:20)
[2018-12-03] MEDS: Metoprolol 25 MG TAB 12.5 MG PO (22:20)
[2018-12-04] VITALS (8 sets, daily range): BP systolic 108–131; BP diastolic 73–91; PULSE 72–143; RESP 20–24; TEMP 36.6–37; O2SAT 97–100
--- NOTE | 2018-12-04 07:00 | DI.US_ITS ---
SYMPTOM/DIAGNOSIS: BILATERAL EXTREMITY EDEMA BILATERAL LOWER EXTREMITY ULTRASOUND: The femoral and popliteal veins and visualized calf veins as well as saphenous veins are freely compressible. No thrombus is visible. Doppler venous wave form augments normally. No Selby's cysts or hematoma seen. IMPRESSION: Negative bilateral lower extremity ultrasound. No evidence of DVT.
[2018-12-04 07:17] LABS: Lactate 1.6 mmol/L (0.6-1.4)
[2018-12-04 07:32] LABS: Abs Immature Grans 0.08 k/cumm (0.0-0.09); Absolute Basophil Count 0.06 k/cumm (0.0-0.2); Absolute Eosinophil Count 0.42 k/cumm (0.0-0.7); Absolute Lymphocyte Count 1.35 k/cumm (1.2-3.4); Absolute Monocyte Count 1.06 k/cumm (0.11-0.7); Absolute Neutrophil Count 7.36 k/cumm (1.2-6.7); Basophils % 0.6; Eosinophils % 4.1; HCT 39.7 % (40.0-50.0); HGB 12.4 g/dL (13.5-17.5); Immature Grans % 0.8; Lymphocytes % 13.1; Mean Corp. HGB Concentration 31.2 g/dL (32.0-36.0); Mean Corpuscular Volume 89.6 fL (80-95); Mean Platelet Volume 9.3 fL (8.0-11.0); Monocytes % 10.3; Neutrophils % 71.1; Platelet Count 353 x1000/uL (130-400); RBC 4.43 m/cumm (4.50-6.00); RBC Distribution Width 15.8 % (11.8-14.1); White Blood Cell Count 10.33 k/cumm (4.4-10.8)
[2018-12-04 07:35] LABS: INR 2.6 (0.9-1.1)
[2018-12-04 07:47] LABS: Anion Gap 10.8 mmol/L (3-11); BUN 18 mg/dL (7-18); CO2 25.2 mmol/L (21.0-32.0); CREATININE 0.89 mg/dL (0.70-1.30); Calcium 8.6 mg/dL (8.5-10.1); Chloride 99 mmol/L (98-107); Glucose 113 mg/dL (70-100); Potassium 3.7 mmol/L (3.5-5.1); Sodium 135 mmol/L (136-145); TSH (W/Ref FT4) 4.94 uIU/mL (0.36-3.74)
[2018-12-04 08:09] LABS: FREE T4 1.11 ng/dL (0.76-1.46)
[2018-12-04] MEDS: Lisinopril 10 MG TAB PO (09:28)
[2018-12-04] MEDS: Metoprolol 25 MG TAB 12.5 MG PO ×2 (09:28→19:32)
[2018-12-04] MEDS: Bumetanide 1 MG TAB 2 MG PO (09:28)
[2018-12-04] MEDS: Aspirin E.C. 81 MG TABEC PO (09:28)
--- NOTE | 2018-12-04 10:05 | OT.INIE ---
Occupational Therapy Notes Inpatient Occupational Therapy Evaluation Date: 12/04/18 Referring Doctor:Eugenie Worthington MD OT Orders: Eval and Treat Precautions: Fall, standard PATIENT PROFILE/ADMITTING DIAGNOSIS: Pt is a 63 year old male who was admitted to [facility] after recently being discharged from [facility] [place] for Obstructive sleep apnea hypopnea, severe, Stasis edema with ulcer, Acute dyspnea ad failure to thrive in home setting. Past Medical History: Medical History (Updated 12/04/18 @ 04:53 by Mau Lorenz) Anal fissure (Resolved) Anticoagulated on warfarin (Chronic) DVT w/ bilateral pulmonary emboli Benign prostatic hypertrophy (Chronic) Bleeding hemorrhoids (Chronic 10/28/17) Constipation (Chronic) Diverticulosis of sigmoid colon (Chronic 02/16/15) Heart failure with preserved ejection fraction (Acute) History of anal fissures (Chronic) History of pulmonary embolus (PE) (Chronic 08/27/13) Hyperlipidemia (Chronic) Hypertension (Chronic) Increased body mass index (Chronic) Low back pain (Chronic) Obstructive sleep apnea hypopnea, severe (Chronic 11/01/14) Osteoarthritis of hip (Chronic 05/07/13) right hip replacement Paroxysmal atrial fibrillation (Chronic 07/16/13) a. Clinically silent AFIB. b. Anticoagulation not indicated. c. Low-dose beta gabriela because of bradycardia at rest. 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 He notes that he has about 20 stairs to enter his apartment. He states that he has someone come in 2x per week for helping with laundry and grocery shopping. He reports that at home he is totally (I) with all ADLs/IADLs. Based on OT's current assessment pt is not able to perform his ADLs/IADL routines (I). He sleeps in a recliner as he is unable to sleep on his back due to leg pain and notes that he can drive but chooses not to. Equipment owned/DME: FWW, 4WW, grab bars, shower chair, sock aid SUBJECTIVE: Pt was sitting in chair when OT arrived. He was agreeable to OT session. OBJECTIVE: General Observation: Pleasant, answered questions appropriately, Thao, IV (R) UE not connected. Bandage wraps on (B) LE which are falling off. Mental Status: A&Ox3 Pain: c/o pain in lower back which he reports is chronic ROM: RUE Shoulder flexion to 150*, elbow WNL, hand and digits WNL L UE Shoulder flexion to 155*, elbow WNL, hand and digits WNL STRENGTH: RUE 4/5 throughout globally LUE 4/5 throughout globally FUNCTIONAL MOBILITY/ADLS: Transfers Sit-Stand CGAx2 Stand-sit CGA with min vc for hand placement Bed-Commode- min vc, CGA BATHING Sitting in chair with max (A) set up Bathing UE (I) UE with min vc provided and good technique demonstrated Bathing LE Mod (A) DRESSING Sitting in chair with min vc Dressing UE Min (A) don and doffing hospital gown Dressing LE Max (A) don and doffing (B) socks- pt notes that he utilizes a sock aid at home GROOMING NT TOILETING on commode min (A) and vc EATING NT BALANCE: Static sitting Normal Dynamic Sitting Good Static Standing Good Dynamic Standing Fair-good SPECIAL TESTS: Daily Activity Limitations Standardized Measure [facility] AM -PAC ?6 clicks? Daily Activity Inpatient Short Form: Raw score: 19 Standardized score: 40.22 CMS score: 42.80% INFORMED CONSENT/EDUCATION: Pt instructed in purpose of OT Consult and plan of care. ASSESSMENT: Patient is a 63-year-old male referred to occupational therapy services with diagnosis of Obstructive sleep apnea hypopnea, severe, Stasis edema with ulcer, Acute dyspnea ad failure to thrive in home setting. Patient presents with clinical signs and symptoms consistent with dx, as demonstrated by the following impairment level findings: Decreased functional activity tolerance, obese, decreased functional mobility, decreased (I) in LE dressing and bathing routines, chronic pain in lower back. Impairments are contributing to the following functional limitations: Pt has difficulty performing the following functional activities including don and doffing (B) socks, bathing (B) LE, performing functional mobility with FWW, performing cooking tasks, community mobility, decreased functional activity tolerance. AMPAC score 19, CMS score 42.80% Patient is assessed as a Moderate 71621 complexity based on the following: History: See Above Examination: See Above Presentation: Evolving Decision Making: AMPAC score 19, CMS score 42.80% GOALS Goals x1 week 1. Transfers- (S) 2. Dressing- (I) with UE, mod (I) LE 3. Bathing- (I) UE and mod (A) LE 4. Toileting- on commode (I) 5. Eating- (I) PLAN OF CARE/TREATMENT PLAN: 1x/day, 5 days/ week x 1week Initiate Occupational Therapy Services for bathing, dressing, grooming, toileting, eating, transfer training. DISCHARGE RECOMMENDATIONS Based on pts current level of function, OT does not feel that pt will be safe and at baseline level of function to return home with out increased services vs. short term stay at SNF. OT will continue to assess pt. TREATMENT TIME/MINUTES/CODES 12247, 30 minutes (07:30) [facility]
--- NOTE | 2018-12-04 14:06 | PHARADMIT ---
Admission Pharmacy Clinical Review suspected PE Code Status Full Code Current Weight 152.3 kg Renally Cleared and Narrow Therapeutic Index Meds Crcl ~77.00 mL/min current meds okay QTc Value / Action Taken QTc 428 BP Control, Fever BP 110/74 afebrile Electrolytes reviewed Na 135 DVT Prophylaxis treatment dose of enoxaparin and warfarin Opiate Usage / Scheduled Bowel Regimen Ordered no/prn Plt/SCr for Heparin / Enoxaparin plt 353 SCr 0.89 INR for Warfarin INR 2.6 H/H stable, WBC/Bands h/h 12.4/39.7 WBC 10.33 Antibiotic appropriateness none Cultures and Sensitivities blood cultures pending urine culture growing jason and gram negative rods Surgical ABX d/c within 24 hr n/a DM control / Insulin Dosing BG 113 none Heart Failure (Check EF%) (ROSS's, B-Block, Diuretics) bumetanide, lisinopril, metoprolol IV to PO Switch n/a Home Meds Reviewed -multiple FITNESS TECHNICIAN depressants:tramadol, meclizine,diphenoxylate -aspiring may enhance the anticoagluant effect of wafarin Home Meds Not Ordered diphenoxylate/atropine, hydrocortisone, meclizine, tramadol Comments current warfarin orders are different than the pts home dose (2.5 mg Tuesdays and 5 mg all other days per [facility]).... watch INR
--- NOTE | 2018-12-04 14:09 | PT.INTREAT ---
Date of service: 12/04/18 Time of Service: 14:09 PT Notes 12/04/18 SUBJECTIVE: Jerome stating he is SOB with even small amounts of activity. He is unsure why this is happening. He notes he needs to use the bathroom. OBJECTIVE: Pt agreeable to PT. DOWN FILLER present in room for assistance. TRANSFERS Sit to stand: Min A Stand to sit: Min A GAIT Device: FWW Weight bearing: Full Assist: Mod A x 1, Chair follow Distance: 10'+5' Deviation: Circumduction right hip, leans on walker right UE for support. THEREX: Light LE/UE strengthening performed in seated position to his tolerance. ASSESSMENT: Pt demonstrates unsteadiness with gait, poor walker management and decreased safety awareness. Would recommend 2 assist and chair follow for safety especially for longer distance gait. He becomes SOB with light activity although Sa02 remains in high 90's. PLAN: Continue with current POC. Treatment time: 25 minutes [id number], [id number] Jamee Ba PTA Clinic location: [facility] [place], [place]
--- NOTE | 2018-12-04 14:43 | PT.INIE ---
Date of service: 12/04/18 Time of Service: 10:16 PT Notes Inpatient Physical Therapy Evaluation Date: 12/04/2018 Referring Doctor: Mau Lorenz MD PT Orders: PT CONSULT: Limited ability Precautions: Fall. Standard. Activity as tolerated Patient Profile/Admitting Diagnosis: Patient is a 63-year-old male with past medical significant for PAF, stasis edema with ulceration, and heart failure who presented to ED on 12/03/2018 with chief liens of shortness of breath. Patient also was recently discharged from [facility] after hospitalization from 01/23 through 11/26/2018. Patient is diagnosed with dyspnea, suspected DVT, stasis edema with ulceration and heart failure. PMHX: Medical History (Updated 12/04/18 @ 04:53 by Mau Lorenz) Anal fissure (Resolved) Anticoagulated on warfarin (Chronic) DVT w/ bilateral pulmonary emboli Benign prostatic hypertrophy (Chronic) Bleeding hemorrhoids (Chronic 10/28/17) Constipation (Chronic) Diverticulosis of sigmoid colon (Chronic 02/16/15) Heart failure with preserved ejection fraction (Acute) History of anal fissures (Chronic) History of pulmonary embolus (PE) (Chronic 08/27/13) Hyperlipidemia (Chronic) Hypertension (Chronic) Increased body mass index (Chronic) Low back pain (Chronic) Obstructive sleep apnea hypopnea, severe (Chronic 11/01/14) Osteoarthritis of hip (Chronic 05/07/13) right hip replacement Paroxysmal atrial fibrillation (Chronic 07/16/13) a. Clinically silent AFIB. b. Anticoagulation not indicated. c. Low-dose beta gabriela because of bradycardia at rest. 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 He states that he has help coming in once a week for 2 to 3 hours to help some ADLs. he also has family memebers who live 45 minutes away from him. Current Functional Limitations: Need for extensive assist as well as for assistive ambulatory device and for all mobility ADL performance Equipment Owned/DME: 4WW, narrow standard walker Subjective: Patient is agreeable to a PT consult and treatment today. When asked to try out front wheeled walker and bariatric front wheeled walker, patient was initially in disagreement. He hopes to be able to have assistance with moving closer to town in a more handicap-accessible living space. Patient reports that he has had difficulty with finding a good residents for himself. He complained about significant low back pain during sit to stand assessment. Objective: General Observation: Obese. Patient seen resting on recliner chair upon arrival of PT and student PT. Telemetry monitoring in place. ROSS wraps over Kerlix gauzes to bilateral legs. Edema and erythema noted on bilateral legs. Mental Status: Alert and oriented as to place and person. Patient required repetition and reinforcement of instructions during session. Pain: Patient had a bout of low back pain upon sent from recliner chair that resulted to resuming the position abruptly. Pain subsided with rest but limited ambulation distance. ROM: Right Lower Extremity: Hip flexion limited due to abdominal panniculus. Hip abduction WFL. Knee flexion WFL. Ankle dorsiflexion WFL. Ankle plantarflexion WFL. Left Lower Extremity: Hip flexion limited due to abdominal panniculus. Hip abduction WFL. Knee flexion WFL. Ankle dorsiflexion WFL. Ankle plantarflexion WFL. Strength: Right Lower Extremity: Hip flexors 3+/5. Hip abductors 3+/5. Knee flexors 4-/5. Knee extensors 4-/5. Ankle dorsiflexors 4-/5. Ankle plantarflexors 4-/5. Left Lower Extremity:Hip flexors 3+/5. Hip abductors 3+/5. Knee flexors 4-/5. Knee extensors 4-/5. Ankle dorsiflexors 4-/5. Ankle plantarflexors 4-/5. Bed Mobility/Transfers: Sit to stand moderate assist Stand to sit moderate assist Bed to chair moderate assist + SBA of another for safety Chair to bed moderate assist + SBA of another for safety Gait: Patient was able to tolerate short distance ambulation on level surface using bariatric front wheeled walker with max assist of student CASH APPLICATIONS REPRESENTATIVE and moderate assist of PT along with recliner chair follow of an FLAVOR EXTRACTOR. Patient demonstrated an safe gait pattern with decreased right knee and hip flexion, minimal circumduction in right hip, and decreased overall gait velocity. Moderate to maximum verbal cueing was provided for overall safety, walker management, and self pacing. Patient reported pain on low back area during ambulation activity. Balance: Static Sitting: Good Dynamic Sitting: Fair Static Standing: Fair Dynamic Standing: Poor Special Tests: Mobility Limitations Standardized Measure [facility] AM-PAC 6 clicks Basic Mobility Inpatient Short Form: Raw Score: 11 CMS Score: 73% deficit Informed Consent/Education: Patient instructed in purpose of PT consult and plan of care. He is agreeable to interventions addressing BLE muscle weakness, ambulatory dysfunction, and activity tolerance. Assessment: Patient is a 63-year-old male with diagnosis of dyspnea, suspected DVT, stasis edema with ulceration, and heart failure. He also presents with impaired safety awareness, limited balance skills, and ambulatory dysfunction that increased risk of falls and limited ability to return home independently. Patient is also obese and has been noncompliant with CPAP machine use which both limit prognosis for returning home and regaining prior level of function. Patient presents with clinical signs and symptoms consistent with current/admitting diagnoses that have resulted to mobility limitations, gait instability, generalized weakness, and impairment of motor control as demonstrated by the following impairment level findings: 1. Decreased strength to B LE major muscle groups 2. Impaired tanding balance 3. Impaired activity tolerance 4. +2 edema, erythema, tenderness on bilateral legs Impairments are contributing to the following functional limitations: 1. Dependent bed mobility skills 2. Increased dependence with transfers 3. Inability to safely ambulate without assistive device and physical assistance 4. Increase completion time for mobility ADL performance 5. Increased fall risk 6. Inability to negotiate steps alone safely Patient is assessed as a 45823 complexity based on the following: History: 63-year-old male with past medical history as indicated above now with diagnosis of dyspnea, suspected DVT, stasis edema with ulcer, and heart failure Examination: Demonstrable impairment in strength, balance, and range of motion with underlying impairments and functional limitations as documented above Presentation:Evolving Decision Makin high complexity Goals: Goals X1 week 1. Supine-Sit independent 2. Sit-Supine independent 3. Sit-Stand independent 4. Stand-Sit independent 5. Bed-Chair independent 6. Chair-Bed independent 7. Independent gait on level surface with use of least restrictive device for at least 100 feet without report of pain nor dyspnea 8. Independent stair negotiation while holding onto bilateral rails for at least 10 steps without report of pain nor dyspnea 9. Independent with home exercise program 10. Good static and dynamic standing balance/tolerance Plan of Care/Treatment Plan: 1-2x/day, 7 days/week x 1 week. Plan of care has been reviewed with the CASH APPLICATIONS REPRESENTATIVE providing the service under Physical Therapy direction. Initiate Physical Therapy intervention for strengthening, bed mobility, transfers, gait, stairs, balance training, use of assistive device. DISCHARGE RECOMMENDATIONS: Patient will benefit from intermediate facility placement in order to progress mobility level, strength, and balance in in anticipation of long-term care placement. TREATMENT CODE/TIME: 82082 x 40 minutes, 17579 x 11 minutes beginning at 10:16 AM Thank you very much for this referral. Rocio Bolden PT, DPT, CLT [facility]
--- NOTE | 2018-12-04 15:25 | W.PM.PROGNOT ---
Date of Service Date of service: 12/04/18 Time of Service: 15:25 Assessment and Plan (1) Dyspnea: Current visit: Yes Status: Acute US venous BLE's is negative for DVT's. I agree that there is a possibility, however, that the patient has a PE that was undetected by US. He states his breathing is at his baseline (at least at rest) and that his symptoms occur primarily with activity. Perhaps an echo and a cardiac stress test could be considered - but the patient's habitus is also at least partialy responsible. INR is therapeutic today - it is ok to d/c lovenox and continue current dose of coumadin. Likely discharge home tomorrow. Qualifiers: Dyspnea type: shortness of breath Qualified Code(s): R06.02 - Shortness of breath; R06.00 - Dyspnea, unspecified; R06.01 - Orthopnea (2) DVT (deep venous thrombosis): Current visit: Yes Status: Suspected as above Qualifiers: DVT location: lower extremity Affected thrombotic vein of extremity: popliteal Chronicity: acute Laterality: right Qualified Code(s): I82.431 - Acute embolism and thrombosis of right popliteal vein (3) Hypertension: Current visit: No Status: Chronic No change in management Qualifiers: Hypertension type: essential hypertension Qualified Code(s): I10 - Essential (primary) hypertension (4) Paroxysmal atrial fibrillation: Current visit: No Status: Chronic continue rate control w/ metoprolol and adjust his warfarin for INR of 2.5 to 3 (5) Anticoagulated on warfarin: Current visit: No Status: Chronic adjustment of warfarin to INR of 2.5 to 3 (6) History of pulmonary embolus (PE): Current visit: No Status: Chronic treatment as above (7) Stasis edema with ulcer: Current visit: Yes Status: Chronic Wound care consulted. Patient follows with outpatient wound care center at [facility]. He had previously fired home [facility] nursing, but would consider having a different agency. No evidence of infection in the ulcers currently. Qualifiers: Laterality: right Qualified Code(s): I87.311 - Chronic venous hypertension (idiopathic) with ulcer of right lower extremity; L97.919 - Non-pressure chronic ulcer of unspecified part of right lower leg with unspecified severity (8) Heart failure with preserved ejection fraction: Current visit: Yes Status: Acute continue bumex 2 mg daily along w/ lisinopril 10 mg daily. Qualifiers: Heart failure chronicity: chronic Qualified Code(s): I50.32 - Chronic diastolic (congestive) heart failure (9) Discharge planning issues: Current visit: Yes Status: Acute Refuses SNF. Consider swing bed if PT has strong concerns - the patient is on anticoagulation. Patient is interested in getting plugged in with a different VNA agency. Full code Possible discharge either home or to swing bed tomorrow. Subjective Interval history since last seen: Mr Torres states that his shortness of breath is his normal and he has had it for years. It feels better today. Denies dizziness, chest pain, nausea, vomiting. Reports that he had chest pains 1 week ago while he was at [facility]. None since. Does not recall seeing cardiology there. No chest pains since. He has refused SNF to our care managers, even though he was strongly recommended SNF by PT. Exam Narrative Exam Narrative: General: Very pleasant obese male, sitting in a chair, looks comfortable and not dyspneic/tachypneic, speaks in long sentences HEENT: EOMI, MMM Heart: Irregularly irregular rhythm, no m/r/g Lungs: CTAB with good air movement B GI: abdomen is soft, obese, nontender Extremities: BLE dressed - c/d/i Objective Objective Clinical Data: Abnormal lab results 12/03/18 12/03/18 12/04/18 Range/Units 17:50 21:55 07:07 RBC (4.50-6.00) m/cumm Hgb (13.5-17.5) g/dL Hct (40.0-50.0) % MCHC (32.0-36.0) g/dL RDW (11.8-14.1) % Absolute Neutrophils (1.2-6.7) k/cumm Absolute Monocytes (0.11-0.7) k/cumm PT 26.0 H (9.3-11.0) sec INR 2.6 H (0.9-1.1) D-Dimer 838 H (<500) ng/mlFEU Sodium (136-145) mmol/L Glucose (70-100) mg/dL Lactate 2.1 H* (0.6-1.4) mmol/L TSH (0.36-3.74) uIU/mL 12/04/18 12/04/18 12/04/18 Range/Units 07:07 07:07 07:07 RBC 4.43 L (4.50-6.00) m/cumm Hgb 12.4 L (13.5-17.5) g/dL Hct 39.7 L (40.0-50.0) % MCHC 31.2 L (32.0-36.0) g/dL RDW 15.8 H (11.8-14.1) % Absolute Neutrophils 7.36 H (1.2-6.7) k/cumm Absolute Monocytes 1.06 H (0.11-0.7) k/cumm PT (9.3-11.0) sec INR (0.9-1.1) D-Dimer (<500) ng/mlFEU Sodium 135 L (136-145) mmol/L Glucose 113 H (70-100) mg/dL Lactate 1.6 H (0.6-1.4) mmol/L TSH 4.94 H (0.36-3.74) uIU/mL Vital Signs Temperature 36.6 C 12/04/18 11:30 Temperature Source Tympanic 12/04/18 11:30 Pulse 84 12/04/18 11:30 Pulse Rhythm Regular 12/04/18 09:30 Pulse 90 12/03/18 18:20 Respiratory Rate 20 12/04/18 11:30 Respiratory Effort Non-Labored 12/04/18 09:30 Respiratory Depth Normal 12/04/18 09:30 Respiratory Pattern Normal 12/04/18 09:30 Blood Pressure 131/91 H 12/04/18 11:30 Blood Pressure Mean 101 12/03/18 15:46 Blood Pressure Position Sitting 12/03/18 10:53 Pulse Oximetry 97 12/04/18 11:30 Oxygen Delivery Method Room Air 12/04/18 11:30 Oxygen Flow Rate 0 12/04/18 11:30 Fraction of Inspired Oxygen (FIO2) 60 12/03/18 16:25 Pain Level 0 12/04/18 11:30 Intake & Output 12/03/18 12/04/18 12/04/18 23:59 11:59 23:59 Output Total 800 / 1050 700 / 850 150 / 850 Balance -800 / -1040 -700 / -850 -150 / -850 Weight 151.953 kg 152.3 kg Output: Urine 800 / 1050 700 / 850 150 / 850 Other: Urine Color Light [place] Yellow Yellow Urine Appearance Clear Clear Clear Comment condom catheter in place Stool Size Moderate Stool Characteristics Soft Voiding Methods Urinal Urinal Laboratory Results WBC 10.33 k/cumm (4.4-10.8) 12/04/18 07:07 RBC 4.43 m/cumm (4.50-6.00) L 12/04/18 07:07 Hgb 12.4 g/dL (13.5-17.5) L 12/04/18 07:07 Hct 39.7 % (40.0-50.0) L 12/04/18 07:07 MCV 89.6 fL (80-95) 12/04/18 07:07 MCH 28.0 pg (27.0-33.0) 12/04/18 07:07 MCHC 31.2 g/dL (32.0-36.0) L 12/04/18 07:07 RDW 15.8 % (11.8-14.1) H 12/04/18 07:07 Plt Count 353 x1000/uL (130-400) 12/04/18 07:07 MPV 9.3 fL (8.0-11.0) 12/04/18 07:07 Immature Gran % 0.8 12/04/18 07:07 71.1 12/04/18 07:07 13.1 12/04/18 07:07 10.3 12/04/18 07:07 4.1 12/04/18 07:07 0.6 12/04/18 07:07 Absolute Neutrophils 7.36 k/cumm (1.2-6.7) H 12/04/18 07:07 Absolute Lymphocytes 1.35 k/cumm (1.2-3.4) 12/04/18 07:07 Absolute Monocytes 1.06 k/cumm (0.11-0.7) H 12/04/18 07:07 Absolute Eosinophils 0.42 k/cumm (0.0-0.7) 12/04/18 07:07 Absolute Basophils 0.06 k/cumm (0.0-0.2) 12/04/18 07:07 PT 26.0 sec (9.3-11.0) H 12/04/18 07:07 INR 2.6 (0.9-1.1) H 12/04/18 07:07 838 ng/mlFEU (<500) H 12/03/18 17:50 VBG pH 7.44 (7.32-7.43) H 12/03/18 11:14 VBG pCO2 41 mm/Hg (34-47) 12/03/18 11:14 VBG pO2 49 mm/Hg (28-44) H 12/03/18 11:14 VBG HCO3 28 mmol/L (22-28) 12/03/18 11:14 VBG Total CO2 25 mmol/L (22-29) 12/03/18 11:14 VBG O2 Saturation 86 % (70-80) H 12/03/18 11:14 VBG Base Excess 3.4 mmol/L (-3-3) H 12/03/18 11:14 Sodium 135 mmol/L (136-145) L 12/04/18 07:07 Potassium 3.7 mmol/L (3.5-5.1) 12/04/18 07:07 Chloride 99 mmol/L (98-107) 12/04/18 07:07 Carbon Dioxide 25.2 mmol/L (21.0-32.0) 12/04/18 07:07 10.8 mmol/L (3-11) 12/04/18 07:07 BUN 18 mg/dL (7-18) 12/04/18 07:07 0.89 mg/dL (0.70-1.30) 12/04/18 07:07 >= 60.00 (mL/min/1.73m2) 12/04/18 07:07 Glucose 113 mg/dL (70-100) H 12/04/18 07:07 1.6 mmol/L (0.6-1.4) H 12/04/18 07:07 Calcium 8.6 mg/dL (8.5-10.1) 12/04/18 07:07 Magnesium 1.8 mg/dL (1.8-2.4) 12/03/18 11:14 0.4 mg/dL (0.2-1.0) 12/03/18 11:14 AST 22 U/L (15-37) 12/03/18 11:14 ALT 56 U/L (16-63) 12/03/18 11:14 85 U/L (46-116) 12/03/18 11:14 < 0.05 ng/mL (0.00-0.06) 12/03/18 17:50 NT-Pro-B Natriuret Pep 968 pg/mL (-299) H 12/03/18 11:14 7.9 g/dL (6.4-8.2) 12/03/18 11:14 3.1 g/dL (3.4-5.0) L 12/03/18 11:14 TSH 4.94 uIU/mL (0.36-3.74) H 12/04/18 07:07 Free T4 1.11 ng/dL (0.76-1.46) 12/04/18 07:07 Yellow (Yellow) 12/03/18 11:25 Clear (Clear) 12/03/18 11:25 6.0 (5-8) 12/03/18 11:25 Ur Specific [place] 1.015 (1.005-1.025) 12/03/18 11:25 Negative mg/dL (Negative) 12/03/18 11:25 Negative mg/dL (Negative) 12/03/18 11:25 Trace-intact (Negative) H 12/03/18 11:25 Negative (Negative) 12/03/18 11:25 Negative (Negative) 12/03/18 11:25 0.2 EU/dL (Up TO 0.2) 12/03/18 11:25 Ur Leukocyte Esterase Trace (Negative) H 12/03/18 11:25 3-5 (0-2) H 12/03/18 11:25 3-5 HPF (0-5) 12/03/18 11:25 Ur Epithelial Cells Few HPF (Negative) 12/03/18 11:25 Negative HPF (Negative) 12/03/18 11:25 Few HPF (Negative) 12/03/18 11:25 Negative LPF (Negative) 12/03/18 11:25 Moderate (Negative) 12/03/18 11:25 Ur Culture Indicated? Yes 12/03/18 11:25 Negative mg/dL (Negative) 12/03/18 11:25
--- NOTE | 2018-12-04 16:38 | INITIAL_ITS ---
- If Service Date Differs Date of service: 12/04/18 Time of Service: 16:38 Care Management Initial Assess REASON FOR HOSPITALIZATION:: PE PAST MEDICAL HISTORY/PAST SURGICAL HISTORY:: Anal fissure (Resolved). Anticoagulated on warfarin (Chronic). DVT w/ bilateral pulmonary emboli. Benign prostatic hypertrophy (Chronic). Bleeding hemorrhoids (Chronic 10/28/17). Constipation (Chronic). Diverticulosis of sigmoid colon (Chronic 02/16/15). Heart failure with preserved ejection fraction (Acute). History of anal fissures (Chronic). History of pulmonary embolus (PE) (Chronic 08/27/13). Hyperlipidemia (Chronic). Hypertension (Chronic). Increased body mass index (Chronic). Low back pain (Chronic). Obstructive sleep apnea hypopnea, severe (Chronic 11/01/14). Osteoarthritis of hip (Chronic 05/07/13). right hip replacement. Paroxysmal atrial fibrillation (Chronic 07/16/13). a. Clinically silent AFIB. b. Anticoagulation not indicated. c. Low-dose beta gabriela because of bradycardia at rest. probable CVA with right lower extremity (Python Java Developer noa). Raised prostate specific antigen (Chronic). Right hip pain (Chronic 09/30/17). Right leg DVT (Resolved 07/27/13). Sensorineural hearing loss of both ears (Chronic). Stasis edema with ulcer (Chronic) PREVIOUS FUNCTIONAL STATUS/SOCIAL/FAMILY SUPPORTS:: Jerome lives at home in [place], [place] he lives in subsidized housing. He states that he has difficulty with mobility at baseline he has a FWW and a 4WW. He has choices for care moderate needs with a homemaker twice a week. He reports he fired home health. He does receive Meals on Wheels and uses public transportation to and from appointments. CURRENT FUNCTIONAL STATUS:: Jerome, is sitting up in the chair. He states he wants to be discharged home when he is medically ready. CM reviewed PT recomendations with him for SNF prior to returning home. Jerome states he will not go to any nursing facility for rehab. He states he has been looking for a new place to stay however he has declined all sites in [place]. He wants to be in [place] in subsidized housing. he reports he is on the housing list for [facility], [facility]. Jerome reports several friends and community supports in his current housing area. Jerome is able to attend appointments at [facility] once a week for wound care. He is able to ride on the stage swim coach and attend his appointments without assitance. ADVANCE DIRECTIVES:: [facility]ST Has patient been provided with information about the portal?: Yes Did the patient sign up for the portal?: No CODE STATUS:: Full Code INSURANCE COVERAGE / FINANCIAL ISSUES:: Medicare and Medicaid CURRENT HOME/COMMUNITY SERVICES/EQUIPMENT:: [employer] moderate needs, Subsidized housing, Homemaker, meals on wheels, FWW, and 4WW. He had a CPAP which he reports came up missing during his move from the [facility]. PRIMARY CARE PHYSICIAN:: POTENTIAL DISCHARGE NEEDS:: Discharge disposition to be determined. Follow up with primary care and continued wound care through [facility] as recomended. Referral to new home health agency and community services to increase supports. PATIENT/FAMILY EDUCATION NEEDS:: Discharge education, limitations and follow up plan of care. ANTICIPATED BARRIERS TO DISCHARGE:: Safe discharge plan, PT recomends SNF patient declines. TRANSPORTATION:: Pending disposition. PLAN:: Jerome will be discharged when medically ready. Disposition to be determined. Anticipate SB1 for PT if unsafe to return home. Pt declined SNF placement. CM to continue to coordinate services for safe discharge plan.
[2018-12-04] MEDS: Tamsulosin 0.4 MG CAPCR PO (23:12)
[2018-12-05 00:02] VITALS: BP 110/73; PULSE 82; RESP 20; TEMP 36.6; O2SAT 98
[2018-12-05] MEDS: Acetaminophen 325 MG TAB PO (00:30)
[2018-12-05 04:11] VITALS: BP 107/72; PULSE 82; RESP 19; TEMP 35.4; O2SAT 98
[2018-12-05 04:17] VITALS: PULSE 41
[2018-12-05] MEDS: Ibuprofen 800 MG TAB PO (04:33)
[2018-12-05 07:08] VITALS: PULSE 75
[2018-12-05 07:34] LABS: INR 2.4 (0.9-1.1); Prothrombin Time 24.5 sec (9.3-11.0)
[2018-12-05 07:36] LABS: Abs Immature Grans 0.05 k/cumm (0.0-0.09); Absolute Basophil Count 0.05 k/cumm (0.0-0.2); Absolute Eosinophil Count 0.39 k/cumm (0.0-0.7); Absolute Lymphocyte Count 1.37 k/cumm (1.2-3.4); Absolute Monocyte Count 0.85 k/cumm (0.11-0.7); Absolute Neutrophil Count 6.35 k/cumm (1.2-6.7); Basophils % 0.6; Eosinophils % 4.3; HCT 39.6 % (40.0-50.0); HGB 12.4 g/dL (13.5-17.5); Immature Grans % 0.6; Lymphocytes % 15.1; Mean Corp. HGB Concentration 31.3 g/dL (32.0-36.0); Mean Corpuscular Volume 89.4 fL (80-95); Mean Platelet Volume 9.3 fL (8.0-11.0); Monocytes % 9.4; Platelet Count 342 x1000/uL (130-400); RBC 4.43 m/cumm (4.50-6.00); RBC Distribution Width 15.9 % (11.8-14.1); White Blood Cell Count 9.06 k/cumm (4.4-10.8)
[2018-12-05 07:52] LABS: Anion Gap 9.9 mmol/L (3-11); BUN 17 mg/dL (7-18); CO2 26.1 mmol/L (21.0-32.0); CREATININE 0.92 mg/dL (0.70-1.30); Calcium 8.4 mg/dL (8.5-10.1); Chloride 99 mmol/L (98-107); Glucose 111 mg/dL (70-100); Potassium 3.7 mmol/L (3.5-5.1); Sodium 135 mmol/L (136-145)
[2018-12-05] MEDS: Metoprolol 25 MG TAB 12.5 MG PO (09:28)
[2018-12-05] MEDS: Lisinopril 10 MG TAB PO (09:29)
[2018-12-05] MEDS: Bumetanide 1 MG TAB 2 MG PO (09:29)
[2018-12-05] MEDS: Aspirin E.C. 81 MG TABEC PO (09:29)
[2018-12-05] MEDS: POTASSIUM CHLORIDE 20 MEQ, POTASSIUM CHLORIDE 10 MEQ 30 MEQ PO (10:26)
--- NOTE | 2018-12-05 11:24 | PT.INTREAT ---
Date of service: 12/05/18 Time of Service: 10:50 PT Notes Inpatient Physical Therapy Treatment Note [facility] Date: 12/05/18 SUBJECTIVE: Jerome states that he is doing fine. He feels like he is back to his normal. OBJECTIVE: [] BED MOBILITY/TRANSFERS Sit-stand: CG/SBA Stand-sit: CG/SBA GAIT Assistive Device: FWW Weight bearing: full Assist: CGx1 Distance: 6x2 Deviation: safety cues THEREX: performed a global LE strength and stabilization routine. See flowsheet for details. Verbal cues for safety, as he tends to be very impulsive with his mvmt patterns. ASSESSMENT: tolerated session well. Seems to be at his baseline per Jerome. I have worked with him in the past (outpatient PT) and feel he is at baseline as well in regards to his ambulation and transfers. PLAN: continue towards established goals per PT POC. TREATMENT CODE/TIME: 30 min. TAx1/ TPx1.
--- NOTE | 2018-12-05 14:54 | DSE_ITS ---
Date of service: 12/05/18 Time of Service: 14:54 DS: Diagnosis Discharge Diagnosis (1) Dyspnea: Status: Acute (2) DVT (deep venous thrombosis): Status: Suspected (3) Hypertension: Status: Chronic (4) Paroxysmal atrial fibrillation: Status: Chronic (5) Anticoagulated on warfarin: Status: Chronic (6) History of pulmonary embolus (PE): Status: Chronic (7) Stasis edema with ulcer: Status: Chronic (8) Heart failure with preserved ejection fraction: Status: Acute Discharge Plan Disposition Patient Disposition: HOME Condition: Stable Discharge Details Chief Complaint: SOB Clinical Impression: Obstructive sleep apnea hypopnea, severe, Stasis edema with ulcer, Acute dyspnea Reason For Visit: SUSPECTED PE Admit Date/Time: 12/04/18 10:25 Admit Provider: Mau Lorenz Attending Provider: Mau Lorenz Primary Care Provider: Ian Soliz ED Provider: Carmelo Perez Hospital Course Hospital Course: For admission details please see in-depth HPI from 12/[address] Duran Lorenz. Hospital Course: (1) Dyspnea: Patient was treated for a potential PE - however, he presented with a therapeutic INR, and although suboptimal his CT was negative for Emboli, and LE dopplers negative for DVT. Patient reports breathing at baseline, and dyspnea ongoing for some time. This may be multi-factorial and related to his morbid obesity, deconditioning, ANNETTA without use of outpatient CPAP, and possible underlying restrictive lung disease (based on body habitus). No evidence of CHF clinically. Further evaluation as an outpatient may be warranted, but as of now appears and reports to be at his baseline. No hypoxia noted. Please note that prior PT evaluation with recommendation for SNF placement which the patient refuses. However, physical therapy evaluation today by Mr. Torres's outpatient therapist notes him to be at his baseline for ambulation and transfers, with recommendations for home PT/OT, which will be scheduled. (2) History of DVT/PE: LE Ultrasound negative for DVT, and CT although limited does not show evidence of PE. (3) Disposition: To home with Home Health Services. Home Meds and New Rx's Prescriptions: Continued lisinopril 10 mg tablet 10 mg PO DAILY Qty: 90 RF: 4 tamsulosin 0.4 mg capsule See Rx Instructions PO HS Qty: 180 RF: 3 (DME) Depend Underwear For Women S-M 1 EACH misc 1 ea Miscellaneous QID Qty: 3 RF: 4 warfarin [Coumadin] 5 mg tablet See Rx Instructions PO DAILY Qty: 90 RF: 4 acetaminophen 500 mg capsule 1,000 mg PO Q6H PRN (Reason: pain) Qty: 180 RF: 4 meclizine 12.5 mg tablet See Rx Instructions PO Q6H PRN Qty: 90 RF: 3 bumetanide 2 mg tablet 1 mg PO DAILY Qty: 45 RF: 4 metoprolol tartrate 25 mg tablet 12.5 mg PO BID Qty: 90 RF: 3 aspirin [Adult Low Dose Aspirin] 81 MG tablet,delayed release (DR/EC) 81 mg PO DAILY RF: 0 Discharge Instructions Activity:: No Strenuous Activity Equipment/Supplies:: No Equipment Needed Diet:: Low Sodium Discharge Orders Discharge Orders: Discharge Order (Routine); Ordered 12/05/18 Ordered By: Chino Medrano DS: Data Vitals/I&O Vitals and I&O: Vital Signs Temperature 35.4 C L 12/05/18 04:11 Temperature Source Tympanic 12/05/18 04:11 Pulse 75 12/05/18 07:08 Pulse Rhythm Irregular 12/04/18 19:41 Pulse 90 12/03/18 18:20 Respiratory Rate 19 12/05/18 04:11 Respiratory Effort 12/04/18 19:41 Respiratory Depth Normal 12/04/18 19:41 Respiratory Pattern Normal 12/04/18 19:41 Blood Pressure 107/72 12/05/18 04:11 Blood Pressure Mean 101 12/03/18 15:46 Blood Pressure Position Sitting 12/03/18 10:53 Pulse Oximetry 98 12/05/18 04:11 Oxygen Delivery Method Room Air 12/05/18 04:11 Oxygen Flow Rate 0 12/05/18 04:11 Fraction of Inspired Oxygen (FIO2) 60 12/03/18 16:25 Pain Level 8 12/05/18 04:33 Intake & Output 12/04/18 12/05/18 12/05/18 23:59 11:59 23:59 Intake Total 720 / 1080 Output Total 150 / 850 350 / 350 Balance 570 / 230 -350 / -350 Intake: Oral 720 / 1080 Output: Urine 150 / 850 350 / 350 Other: Urine Color Yellow Yellow Urine Appearance Clear Clear Urine Odor None Comment condom catheter in place Stool Size Small Large Stool Characteristics Formed Formed Brown Voiding Methods Toilet Completed studies during hospitalization [Text1]: Exam(s) 12/03/2018 a RAD:XR portable chest AP SYMPTOM/DIAGNOSIS: CHEST PAIN AND DYSPNEA WORSENING OVER PAST 24 HOURS. CHEST X-RAY: Portable AP view. Comparison 11/08/16 There is poor inspiration. Cardiac silhouette appears within normal limits. There is plate atelectasis in the lung bases. No definite focal consolidating infiltrates or effusions seen. No pneumothorax is identified. IMPRESSION: Atelectasis in the lung bases. Exam(s) 12/03/[address]:CT chest PE CTA SYMPTOM/DIAGNOSIS: DYSPNEA, TACHYPNEA X 1 WEEK, H/O BILATEARAL PE [address] FOR PULMONARY EMBOLISM: CT angiography was performed with multi slice acquisition and multi planar and 3D reconstruction. Comparison is made with July The exam is quite limited by patient motion. The aorta and pulmonary arteries are well opacified with IV contrast. There is no evidence of aortic dissection. No central pulmonary emboli are seen. Branch vessel emboli could not be excluded due to motion. No pleural or pericardial effusions or infiltrates are seen. There is no evidence of pneumothorax. No thoracic compression fractures are present. IMPRESSION: Limited exam due to patient motion. There are no central pulmonary emboli. Branch vessel emboli could not be excluded. -------- Exam(s) 12/04/2018 a US:US extremity venous BI SYMPTOM/DIAGNOSIS: BILATERAL EXTREMITY EDEMA BILATERAL LOWER EXTREMITY ULTRASOUND: The femoral and popliteal veins and visualized calf veins as well as saphenous veins are freely compressible. No thrombus is visible. Doppler venous wave form augments normally. No Selby's cysts or hematoma seen. IMPRESSION: Negative bilateral lower extremity ultrasound. No evidence of DVT. Labs on day of discharge: Labs from last 24 hours 12/05/18 12/05/18 12/05/18 06:55 06:55 06:55 WBC 9.06 RBC 4.43 L Hgb 12.4 L Hct 39.6 L MCV 89.4 MCH 28.0 MCHC 31.3 L RDW 15.9 H Plt Count 342 MPV 9.3 Immature Gran % 0.6 Neutrophils % 70.0 Lymphocytes % 15.1 Monocytes % 9.4 Eosinophils % 4.3 Basophils % 0.6 Absolute Neutrophils 6.35 Absolute Lymphocytes 1.37 Absolute Monocytes 0.85 H Absolute Eosinophils 0.39 Absolute Basophils 0.05 PT 24.5 H INR 2.4 H Sodium 135 L Potassium 3.7 Chloride 99 Carbon Dioxide 26.1 Anion Gap 9.9 BUN 17 Creatinine 0.92 Estimated GFR/1.73 m2 >= 60.00 Glucose 111 H Calcium 8.4 L Magnesium 2.0 Preliminary micro results at discharge 12/03/18 11:25 Urine Culture - Preliminary Urine - Reflex from Ua Gram Negative Gutierrez Gram Negative Gutierrez#2 Gram Positive Tegan,Mixed 12/03/18 14:48 Blood Culture - Preliminary Blood NO GROWTH 24 HOURS 12/03/18 14:35 Blood Culture - Preliminary Blood NO GROWTH 24 HOURS [facility] Medical History Anal fissure (Resolved) Anticoagulated on warfarin (Chronic) DVT w/ bilateral pulmonary emboli Benign prostatic hypertrophy (Chronic) Bleeding hemorrhoids (Chronic 10/28/17) Constipation (Chronic) Diverticulosis of sigmoid colon (Chronic 02/16/15) Heart failure with preserved ejection fraction (Acute) History of anal fissures (Chronic) History of pulmonary embolus (PE) (Chronic 08/27/13) Hyperlipidemia (Chronic) Hypertension (Chronic) Increased body mass index (Chronic) Low back pain (Chronic) Obstructive sleep apnea hypopnea, severe (Chronic 11/01/14) Osteoarthritis of hip (Chronic 05/07/13) right hip replacement Paroxysmal atrial fibrillation (Chronic 07/16/13) a. Clinically silent AFIB. b. Anticoagulation not indicated. c. Low-dose beta gabriela because of bradycardia at rest. 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) Raised prostate specific antigen (Chronic) Right hip pain (Chronic 09/30/17) Right leg DVT (Resolved 07/27/13) Sensorineural hearing loss of both ears (Chronic) Stasis edema with ulcer (Chronic) Surgical History History of umbilical hernia repair (Resolved) Repair of umbilical hernia (04/22/01) Family History family history Personal history of malignant neoplasm colon/prostate Social History Smoking/Tobacco Use Status: Never Alcohol Intake: never Drug use: Never What type of physical activity do you participate in: none Do you feel safe at home: Yes Do you feel safe in your relationship?: Yes
[2018-12-05 14:58] VITALS: PULSE 85
--- NOTE | 2018-12-05 15:43 | CMDISCH_ITS ---
- If Service Date Differs Date of service: 12/05/18 Time of Service: 15:43 LACE Index Scoring Tool - Questions: Length of Stay (in days): 2 Acuity (Admit via E.D.?): Yes Comorbidities: Cerebrovascular Disease, Congestive Heart Failure E.D. Visits: 7 - Answers: Total Score: 12 Risk of Readmission: High Risk Care Management Discharge Reason for Hospitalization: PE Discharge Plan: Jerome is being discharged home today per PT assessment he is at his baseline mobility. PT has worked with Jerome for years and is familer with his mobility and ambulatory status. Jerome feels he is at his baseline for mobility and does not want to be discharged to a SNF. CM sent referral to home health for nursing, PT, OT and SENIOR NETWORK ENGINEER. Jerome is working with community supports to find local handicap housing. Jerome will resume services through [facility] moderate needs. CM will email the [facility] to follow up missing CPAP and to assist in obtaining a replacement in the community. Jerome will be transported via private car with friend at time of discharge. Jerome will continue to follow up wound management at [facility] with their wound clinic. Patient/Family Education Needs: Discharge education, limitations and follow up plan of care including ask me three and self management. Services Needed at Discharge: Home Delivered Meals, Home Health Care Services, Occupational Therapy, Physical Therapy, Transportation
--- NOTE | 2018-12-05 15:50 | HHF2F_ITS ---
1. Encounter Date and Reason I certify that DONALD REDDING was seen by Chino Medrano on 12/05/18 and that I had a [id number] encounter with this patient that meets the physician face to face encounter requirements. 2. Clinical Findings Supporting Skilled Need and Homebound Status I certify that home health services are medically necessary, include either intermittent detention and/or physical/speech therapy, and that this patient is homebound in that absences from the home require considerable and taxing effort and are infrequent or of short duration, or are attributable to the need to receive medical care. [X] (a) Attached documentation from encounter provides clinical findings supporting skilled need and homebound status (including what assistance patient requires to leave the home). The encounter with the patient was in whole, or in part, for the following medical condition, which is the primary reason for home health care: SUSPECTED PE Senior Care: Wound Care Physical Therapy/Occupational Therapy: Deconditioning and mobility Russian History Professor: Assess for home needs and community services needed 3. Certification and Authentication I certify that I composed the above information based on my clinical judgement relating to this patient's medical condition and, if applicable, clinical find ings communicated to me by the NPP or inpatient physician who performed the Home Health Referral. All further orders will be obtained through Ian Soliz (Community Based Physician - PCP)
--- NOTE | 2018-12-06 15:17 | WOUNDCARE ---
Wound Care Report Pt is a 63 year old male consulted and seen on 12/05/18 for bilat LE?s edema and open areas. Chart reviewed, including H&P, recent labs, and vital signs, and other providers? reports. Wound Hx if applicable Per Pt report he is followed by [facility] wound clinic. He goes there weekly to have his UNNA boots changed. He has an apt on Dec 10 Wound Assessment Findings Bilat LE redness, swelling,? Lymphedema, positive stemmers sign noted. Tissue is hard to palpation and has cobblestone appearance on both legs. Hyperkeratosis present on both legs. Most notable open area is on RLE medial calf measuring 6.5x9x0.1 (using clock method), wound is in the shape of a boot, like [place]. Wound base has a hamburger looking consistency. LE?s cleansed with debrisoft pads to remove tissue. Lotion applied to feet. Unna boots applied. Pt tolerated application well. Cap refil checked, brisk. Surrounding tissue Firm edema, erythema Exudate amount & type Moderate amount of serous, brown drainage coming from RLE. Minimal drainage from LLE. Odor no real odor from wound, legs smells like dirty feet. Indicators of infection present? Erythema, edema, induration, weeping. Pt reports all of these are at his baseline. Patients Mobility status independent Continence Pt voids frequently, but it continent Circulatory status palpable pulses, capillary refill brisk, Pt refused to let nursing obtain ankle brachial index (INGRID) he will not lay flat, will not elevate leg d/t back pain. Adamantly refused to lay or elevate legs. Edema R > L Pain Denies Leg pain. Does report back pain 10/10. Current Topical Treatment plan Unna Boot (zinc) bilateral, change weekly @ [facility] wound center. Response to care/treatment plan Will reassess if Pt is readmitted. [facility] to follow Referrals home health to follow Pt for wound care Recommendations: Wash bilat LE?s. Apply Unna boots to bilateral LE?s. Change every 3-5 days and PRN. Thank you for the consult.
[2018-12-07 11:04] LABS: Prealbumin 22 mg/dL (20-40)
--- NOTE | 2018-12-08 23:34 | OTDS_ITS ---
Date of service: 12/08/18 Time of Service: 23:34 Occupational Therapy Notes Occupational Therapy Inpatient Discharge Summary Date: 12/08/18 Referring Doctor:Eugenie Worthington MD OT Orders: Eval and Treat Precautions: Fall, standard PATIENT PROFILE/ADMITTING DIAGNOSIS: Pt is a 63 year old male who was admitted to [facility] after recently being discharged from [facility] for Obstructive sleep apnea hypopnea, severe, Stasis edema with ulcer, Acute dyspnea ad failure to thrive in home setting. Past Medical History: Medical History (Updated 12/04/18 @ 04:53 by Mau Lorenz) Anal fissure (Resolved) Anticoagulated on warfarin (Chronic) DVT w/ bilateral pulmonary emboli Benign prostatic hypertrophy (Chronic) Bleeding hemorrhoids (Chronic 10/28/17) Constipation (Chronic) Diverticulosis of sigmoid colon (Chronic 02/16/15) Heart failure with preserved ejection fraction (Acute) History of anal fissures (Chronic) History of pulmonary embolus (PE) (Chronic 08/27/13) Hyperlipidemia (Chronic) Hypertension (Chronic) Increased body mass index (Chronic) Low back pain (Chronic) Obstructive sleep apnea hypopnea, severe (Chronic 11/01/14) Osteoarthritis of hip (Chronic 05/07/13) right hip replacement Paroxysmal atrial fibrillation (Chronic 07/16/13) a. Clinically silent AFIB. b. Anticoagulation not indicated. c. Low-dose beta gabriela because of bradycardia at rest. 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 He notes that he has about 20 stairs to enter his apartment. He states that he has someone come in 2x per week for helping with laundry and grocery shopping. He reports that at home he is totally (I) with all ADLs/IADLs. Based on OT's current assessment pt is not able to perform his ADLs/IADL routines (I). He sleeps in a recliner as he is unable to sleep on his back due to leg pain and notes that he can drive but chooses not to. Equipment owned/DME: FWW, 4WW, grab bars, shower chair, sock aid SUBJECTIVE: NT This document serves as a summary of care, no skilled OT services provided for this documentation. OBJECTIVE: ROM: RUE Shoulder flexion to 150*, elbow WNL, hand and digits WNL L UE Shoulder flexion to 155*, elbow WNL, hand and digits WNL STRENGTH: RUE 4/5 throughout globally LUE 4/5 throughout globally FUNCTIONAL MOBILITY/ADLS: Transfers Sit-Stand CGAx2 Stand-sit CGA with min vc for hand placement Bed-Commode- min vc, CGA BATHING Sitting in chair with max (A) set up Bathing UE (I) UE with min vc provided and good technique demonstrated Bathing LE Mod (A) DRESSING Sitting in chair with min vc Dressing UE Min (A) don and doffing hospital gown Dressing LE Max (A) don and doffing (B) socks- pt notes that he utilizes a sock aid at home GROOMING NT TOILETING on commode min (A) and vc EATING NT BALANCE: Static sitting Normal Dynamic Sitting Good Static Standing Good Dynamic Standing Fair-good ASSESSMENT: Patient is a 63-year-old male referred to occupational therapy services with diagnosis of Obstructive sleep apnea hypopnea, severe, Stasis edema with ulcer, Acute dyspnea ad failure to thrive in home setting. Patient p resents with clinical signs and symptoms consistent with dx, as demonstrated by the following impairment level findings: Decreased functional activity tolerance, obese, decreased functional mobility, decreased (I) in LE dressing and bathing routines, chronic pain in lower back. Impairments are contributing to the following functional limitations: Pt has difficulty performing the following functional activities including don and doffing (B) socks, bathing (B) LE, performing functional mobility with FWW, performing cooking tasks, community mobility, decreased functional activity tolerance. Pt was seen for OT consult/evaluation only before pt was medically cleared per MD to return home with services. GOALS-Not met 1. Transfers- (S) 2. Dressing- (I) with UE, mod (I) LE 3. Bathing- (I) UE and mod (A) LE 4. Toileting- on commode (I) 5. Eating- (I) PLAN OF CARE/TREATMENT PLAN: Pt was discharged and medically cleared per MD. DISCHARGE RECOMMENDATIONS Based on pts current level of function, OT does not feel that pt will be safe and at baseline level of function to return home with out increased services vs. short term stay at SNF. OT will continue to assess pt. TREATMENT TIME/MINUTES/CODES N/A Veronica Hill, OTR/L [facility]
== END 2018-12-05 16:15 | disposition home or self-care (01) | DRG 204 ==
LOC: ER 18:40 → MS 18:48
PROVIDERS: Internal Medicine; Admitting Provider Internal Medicine; Emergency Provider Physician Assistant Medical; PCP Family Medicine; Visit Provider Internal Medicine
DX: R06.02 Shortness of breath (principal); I87.313 Chronic venous hypertension (idiopathic) with ulcer of bilateral lower extremity; L97.828 Non-pressure chronic ulcer of other part of left lower leg with other specified severity; L97.211 Non-pressure chronic ulcer of right calf limited to breakdown of skin; I50.32 Chronic diastolic (congestive) heart failure; R06.00 Dyspnea, unspecified; Z86.718 Personal history of other venous thrombosis and embolism; Z86.711 Personal history of pulmonary embolism; E66.01 Morbid (severe) obesity due to excess calories; Z73.89 Other problems related to life management difficulty; G47.33 Obstructive sleep apnea (adult) (pediatric); J98.4 Other disorders of lung; I10 Essential (primary) hypertension; I48.0 Paroxysmal atrial fibrillation; Z79.01 Long term (current) use of anticoagulants
CPT/HCPCS: 36415; 71275; 80048; 80053; 82805; 87040; 87077; 93005; 97110; 97163; 97166; 97530; 97535; 99220; 99232; 99238; 99285; 71045; 81003; 81015; 83605; 83735; 83880; 84134; 84439; 84443; 84484; 85025; 85379; 85610; 87086; 87186; 93010; 93970; 94660; G0378; J1650; J2060; J3010; J3490; Q9967

== ENCOUNTER 2019-02-19 01:47 | Outpatient (CLI) | payer MEDICARE, MEDICAID, SELFPAY ==
[2019-02-19 14:27] LABS: INR 2.2 (0.9-1.1); Prothrombin Time 21.3 sec (9.3-11.0)
== END 2019-02-19 02:07 ==
PROVIDERS: PCP Family Medicine; Visit Provider Family Medicine
DX: I26.99 Other pulmonary embolism without acute cor pulmonale (principal); Z79.01 Long term (current) use of anticoagulants
CPT/HCPCS: 36415; 85610

== ENCOUNTER 2019-04-05 01:39 | Outpatient (CLI) | payer MEDICARE, MEDICAID, SELFPAY ==
[2019-04-05 11:49] LABS: INR 2.7 (0.9-1.1); Prothrombin Time 26.2 sec (9.3-11.0)
== END 2019-04-05 01:59 ==
PROVIDERS: PCP Family Medicine; Visit Provider Family Medicine
DX: I26.99 Other pulmonary embolism without acute cor pulmonale (principal); Z79.01 Long term (current) use of anticoagulants
CPT/HCPCS: 36415; 85610

== ENCOUNTER 2019-05-10 02:34 | Outpatient (CLI) | payer MEDICARE, MEDICAID, SELFPAY ==
[2019-05-10 13:05] LABS: Prothrombin Time 29.8 sec (9.3-11.0)
[2019-05-10 13:21] LABS: Anion Gap 11.6 mmol/L (3-11); BUN 21 mg/dL (7-18); CO2 24.4 mmol/L (21.0-32.0); CREATININE 0.93 mg/dL (0.70-1.30); Calcium 8.5 mg/dL (8.5-10.1); Chloride 103 mmol/L (98-107); Glucose 107 mg/dL (74-106); Potassium 3.7 mmol/L (3.5-5.1); Sodium 139 mmol/L (136-145)
== END 2019-05-10 02:54 ==
PROVIDERS: PCP Family Medicine; Referring Provider Internal Medicine Critical Care Medicine; Visit Provider Family Medicine
DX: I50.33 Acute on chronic diastolic (congestive) heart failure (principal); I48.91 Unspecified atrial fibrillation; I10 Essential (primary) hypertension; Z86.711 Personal history of pulmonary embolism; Z79.01 Long term (current) use of anticoagulants
CPT/HCPCS: 36415; 80048; 85610

== ENCOUNTER 2019-06-09 10:45 | Outpatient (CLI) | payer MEDICARE, MEDICAID, SELFPAY ==
[2019-06-09 11:22] LABS: INR 2.7 (0.9-1.1); Prothrombin Time 26.5 sec (9.3-11.0)
== END 2019-06-09 11:05 ==
PROVIDERS: PCP Family Medicine; Visit Provider Family Medicine
DX: I26.99 Other pulmonary embolism without acute cor pulmonale (principal); Z79.01 Long term (current) use of anticoagulants
CPT/HCPCS: 36415; 85610

== ENCOUNTER 2019-07-09 00:52 | Outpatient (CLI) | payer MEDICARE, MEDICAID, SELFPAY ==
[2019-07-09 11:55] LABS: INR 2.1 (0.9-1.1); Prothrombin Time 20.8 sec (9.3-11.0)
== END 2019-07-09 01:12 ==
PROVIDERS: PCP Family Medicine; Visit Provider Family Medicine
DX: I26.99 Other pulmonary embolism without acute cor pulmonale (principal); Z79.01 Long term (current) use of anticoagulants
CPT/HCPCS: 36415; 85610